=== PATIENT | female | born 1975 | race African-American/Black ===

== ENCOUNTER 2020-03-08 16:06 | Outpatient (CLI) | payer OTHER, SELFPAY ==
[2020-03-08 16:41] LABS: D Dimer 0.33 ug/mL (<0.48)
== END 2020-03-08 16:07 | disposition home or self-care (01) ==
PROVIDERS: PCP Family Medicine; Visit Provider Internal Medicine Cardiovascular Disease
DX: R07.9 Chest pain, unspecified (principal)
CPT/HCPCS: 36415; 85380

== ENCOUNTER 2020-08-10 11:04 | Outpatient (CLI) | payer OTHER, SELFPAY ==
[2020-08-10 11:39] LABS: Hemoglobin A1C 7.8 % (<5.7)
== END 2020-08-10 11:05 | disposition home or self-care (01) ==
LOC: ANHLAB 11:07
PROVIDERS: PCP Family Medicine; Visit Provider Family Medicine
DX: E11.9 Type 2 diabetes mellitus without complications (principal)
CPT/HCPCS: 36415; 83036

== ENCOUNTER 2020-09-05 14:30 | Outpatient (RCR) | payer OTHER, SELFPAY ==
--- NOTE | 2020-08-11 13:45 | OTOPEVAL ---
OCCUPATIONAL THERAPY INITIAL EVALUATION: 08/11/2020 Thank you for referring Amada Jay to [facility].? The patient is scheduled to be seen for therapy? 2 x/week for 4 weeks. Please review, sign, date and return this plan of care [email or web address]. I agree with and certify that the following plan of care is medically necessary. 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 Subjective Information Pt reports having OT for six Query Text:As Reported By Patient/ months after diagnosis of Family lateral epicondylitis for conservative management. Pt reports had a arm of R UE surgery for the removal of nerves in December 2018. Pt reports going to therapy post surgery for approximately 3 months. Pt reports having continued difficulties with picking up objects, grabbing objects, opening bottles and jars, squeezing a broom due to increased pain in bilateral UE elbows. 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
--- NOTE | 2020-08-31 15:37 | PCOTNOTE ---
Appointment cancelled for tomorrow, 09/01/20, due to patient's COVID test still pending.
--- NOTE | 2020-09-05 15:40 | PCOTNOTE ---
Patient no showed and no called for OT appointment, pt called twice with message left in regards to appointment today and when next appointment is scheduled.
--- NOTE | 2020-09-07 10:54 | PCOTNOTE ---
Called patient in regards to appointment today on 09/07/2020. Pt reports unable to make this appointment today but did have a negative COVID-19 test result and will call later today to schedule appointments for continued Outpatient OT.
--- NOTE | 2020-09-21 09:14 | PCOTNOTE ---
Amada has been unable to attend Occupational Therapy for Re-Evaluation due to being sick and previously was pending results of COVID-19 test which came back negative. Amada's last appointment was on 08/24 and re-evaluation was on 09/08 which has not been completed. Pt reported was going to schedule new appointments on 09/07, prior to Plan of Care expiration, but did not call to reschedule appointments. Called and left message with patient on this date that when medically appropriate, will need new orders from MD to continue Occupational Therapy at this time.
--- NOTE | 2020-09-25 07:34 | OTOPEVAL ---
OCCUPATIONAL THERAPY DISCHARGE SUMMARY: 09/25/2020 Amada has been unable to attend Occupational Therapy for Re-Evaluation due to being sick and previously was pending results of COVID-19 test which came back negative. Amada's last appointment was on 08/24 and re-evaluation was on 09/08 which has not been completed. Pt reported was going to schedule new appointments on 09/07, prior to Plan of Care expiration, but did not call to reschedule appointments. Called and left message with patient that when medically appropriate, will need new orders from MD to continue Occupational Therapy at this time. This note will serve as Discharge Summary from occupational therapy at this time. I agree with and certify that the following plan of care is medically necessary. Referring Physician Date Attending Provider: PHYSICIAN NOT ON STAFF
== END 2020-09-25 09:42 | disposition home or self-care (01) ==
LOC: ANHOT 14:30
PROVIDERS: PCP Family Medicine
DX: M77.11 Lateral epicondylitis, right elbow (principal); M77.01 Medial epicondylitis, right elbow; M77.12 Lateral epicondylitis, left elbow; M77.02 Medial epicondylitis, left elbow
CPT/HCPCS: 97018; 97035; 97110; 97140; 97165; L3905

== ENCOUNTER 2021-05-04 08:43 | Outpatient (CLI) | payer MEDICAID, SELFPAY ==
[2021-05-04 09:24] LABS: Alanine Aminotransferase 14 U/L (4-35); Albumin Level 4.1 g/dL (3.5-5.1); Alkaline Phosphatase 63 U/L (38-126); Anion Gap 11 mmol/L (8-16); Aspartate Amino Transferase 25 U/L (14-36); Bilirubin,Total 0.6 mg/dL (0.2-1.3); Blood Urea Nitrogen 8 mg/dL (7-17); Calcium 9.3 mg/dL (8.4-10.2); Carbon Dioxide 24 mmol/L (22-30); Chloride 103 mmol/L (98-107); Cholesterol 181 mg/dL (0-200); Estimated Glomerular Filt Rate > 60; Glucose 234 mg/dL (65-105); HDL Direct 50 mg/dL; Potassium 3.7 mmol/L (3.4-5.0); Sodium 138 mmol/L (137-145); Triglycerides 187 mg/dL (<150)
[2021-05-04 09:35] LABS: LDL Cholesterol Direct 89 mg/dL
[2021-05-04 09:44] LABS: Creatinine Urine 132.1 mg/dL
[2021-05-04 09:49] LABS: MALB Creatinine Ratio 9.1 mg/g (0-30)
[2021-05-04 10:18] LABS: Vitamin D 25 Hydroxy 38.5 ng/mL
== END 2021-05-04 08:44 | disposition home or self-care (01) ==
LOC: ANHLAB 08:47
PROVIDERS: PCP Family Medicine
DX: E11.65 Type 2 diabetes mellitus with hyperglycemia (principal); Z79.4 Long term (current) use of insulin
CPT/HCPCS: 36415; 80053; 80061; 82043; 82306; 84443

== ENCOUNTER 2022-01-09 11:59 | Outpatient (CLI) | payer OTHER, SELFPAY ==
[2022-01-09 13:36] LABS: Creatinine Urine 187.2 mg/dL
[2022-01-09 15:04] LABS: MALB Creatinine Ratio 7.3 mg/g (0-30); Microalbumin Urine Random 13.6 mg/L (0-16.7)
== END 2022-01-09 12:00 | disposition home or self-care (01) ==
PROVIDERS: PCP Family Medicine
DX: E11.65 Type 2 diabetes mellitus with hyperglycemia (principal)
CPT/HCPCS: 36415; 82043; 82607

== ENCOUNTER 2022-07-04 08:50 | Outpatient (CLI) | payer OTHER, SELFPAY ==
--- NOTE | 2022-07-04 14:04 | WPDPFTINT ---
PFT Procedure Performed PFT Procedure Performed Spirometry with Pre/Post Bronchodilator Plethysmography (Lung Vol) Diffusing Cap (DLCO) Flow Vol Loop PFT Interpretation Lung volumes were measured with the body plethysmography method. The diminished expiratory reserve volume is related to obesity. The remaining lung volumes are unremarkable. Spirometry showed diminished expiratory flow rates and a normal FEV1 to FVC ratio of 85%. No post bronchodilator study was carried out. Lung diffusion capacity is within the normal range at 78% predicted. The restrictive pattern on spirometry in the face of a normal total lung capacity is consistent with a nonspecific pattern. Flow-volume loop is consistent with suboptimal effort. Impression: Nonspecific pattern. Suboptimal effort. Lung diffusion capacity within the normal range.
== END 2022-07-04 08:51 | disposition home or self-care (01) ==
LOC: ANHPFT 08:51
PROVIDERS: PCP Family Medicine; Visit Provider Physician Assistant
DX: R05.3 Chronic cough (principal)
CPT/HCPCS: 94375; 94726; 94729

== ENCOUNTER 2022-11-25 08:55 | Outpatient (CLI) | payer OTHER, SELFPAY ==
--- NOTE | 2022-11-25 | ECG_ITS ---
Measurements Intervals [place] Rate: 76 P: 28 SC: 163 QRS: -20 QRSD: 87 T: 16 QT: 380 QTc: 429 Interpretive Statements SINUS RHYTHM DELAYED PRECORDIAL R/S TRANSITION BORDERLINE ECG NO PREVIOUS ECG AVAILABLE FOR COMPARISON Electronically Signed On 11-25-2022 9:55:12 DIRECTOR NEW PRODUCT by Lance Cuello D.O.
--- NOTE | ~2022-11-25 | XR_ITS ---
EXAMINATION: XR chest 2V DATE: 11/25/2022 10:11 INDICATION: Hypertension TECHNIQUE: PA and lateral views of the chest are obtained. COMPARISON: 04/17/2022 FINDINGS: The lungs are free of acute opacities. No pleural effusion or pneumothorax. The cardiomedia stinal silhouette is normal. There is mild thoracic spondylosis. Osteoarthritis is noted in the shoul ders. IMPRESSION: 1. No acute cardiopulmonary abnormality. Reviewed, dictated and finalized at location B. 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
--- NOTE | 2022-11-25 12:32 | WPDPFTINT ---
PFT Procedure Performed PFT Procedure Performed Plethysmography (Lung Vol) Diffusing Cap (DLCO) Flow Vol Loop Spirometry w/o Bronchodil PFT Interpretation This is a pulmonary function test with spirometry, plethysmography and diffusing capacity. The test was performed and results interpreted in accordance with the 2019 and 2005 ATS/ERS Task Force guidelines respectively using the Global Lung Function Initiative-2012 reference equations. Patient demonstrated good effort and cooperation. Reproducibility criteria were met. The quality of the spirometry maneuver was Grade A. Findings: Spirometry: the contour the expiratory flow tracing is normal. The contour the inspiratory flow tracing is truncated and cannot be evaluated. The FVC is 2.52 L, 81% predicted. The FEV1 is 2.12 L, 84% predicted. The FEV1: FVC ratio was 84%. Plethysmography: The total lung capacity is 3.91 L, 85% predicted. The functional residual capacity is 1.68 L, 62% predicted. The residual volume is 1.39 L, 84% predicted. Diffusion capacity: The diffusing capacity unadjusted for hemoglobin and carboxyhemoglobin is 19.0, 81% predicted. The diffusing capacity adjusted for alveolar volume is 5.54, 120% predicted. In comparison to previous pulmonary function test on 07/04/2022 in which the patient was unable to provide reproducible results on the spirometry secondary due to patient's persistent cough. The FVC is unchanged from 2.31 to 2.52. The FEV1 is unchanged from 1.96-2.12. The total lung capacity is decreased from 5.18 L to 3.91 L. The functional residual capacity is decreased from 2.62 L to 1.68 L. The residual volume is decreased from 2.60 L to 1.39 L. The DLCO on adjusted for hemoglobin and carboxyhemoglobin is unchanged at 18.3 to a value of 19. The diffusing capacity adjusted for alveolar volume is unchanged from 5.46 to a value of 5.54. Impression: The spirometry is normal without evidence of an obstructive abnormality. The total lung capacity and residual volume are normal with a decreased functional residual capacity. This is an abnormal but nonspecific lung volume pattern. The diffusing capacity is normal. When compared to previous pulmonary function testing on 07/04/2022 in which the patient was unable to provide reproducible results on the spirometry secondary due to patient's persistent cough there has been a greater than anticipated time dependent decrease in the total lung capacity, functional residual capacity and residual volume with no change in the FVC, FEV1 or DLCO. Clinical correlation is recommended.
== END 2022-11-25 08:56 | disposition home or self-care (01) ==
PROVIDERS: PCP Family Medicine; Visit Provider Physician Assistant
DX: Z01.89 Encounter for other specified special examinations (principal)
CPT/HCPCS: 71046; 93005; 94375; 94726; 94729

== ENCOUNTER 2022-12-26 08:36 | Outpatient (CLI) | payer OTHER, SELFPAY ==
--- NOTE | 2022-12-26 08:48 | EST_ITS ---
Patient Info Name: Amaad Jay Age: 47 years : 1975 Gender: Female Ht: 65 in Wt: 240 lbs BSA: 2.29 m2 Exam Date: 12/26/2022 9:14 AM Exam Location: [facility] Pulmonary Patient Status: Outpatient Admit Date: 12/26/2022 Staff Ordering Physician: Lance Cuello DO Podiatrist Orthopedic: Silvestre Manzo RDCS, RT Attending Provider: Referring Physician: Kumar Branham MD; Exam Type: CA stress echo Study Info Indications Z01.818 - Encounter for other preprocedural examination Treadmill exercise stress echocardiogram is performed. Summary 1. 1. Negative Rashard exercise stress test for ischemic ST changes by ECG criteria. 2. 2. Reduced functional capacity, achieving 5.9 METs of workload. 3. 3. Baseline hypertension with hypertensive response to exercise. 4. 4. Appropriate HR response to exercise. 5. 5. Appropriate HR recovery at 1 minute post exercise. 6. 6. Negative stress echocardiogram for ischemia by wall motion analysis. 7. 7. Patient informed of the above results. Stress Echo Findings Left Ventricle Appropriate increase in LV endocardial thickening with systole. Appropriate augmentation of contractility with systole. No wall motion abnormality. Left Ventricle Normal LV systolic function, no wall motion abnormality. Protocol: Rashard Stress ECG Details Stage: REST Duration (min): 1 min : 30 sec Speed (mph): 0.0 Grade (%): 0 HR (bpm): 89 SBP (mmHg): 146 DBP (mmHg): 61 METS: --- Stage: REST Duration (min): 31 min : 25 sec Speed (mph): 0.0 Grade (%): 0 HR (bpm): 80 SBP (mmHg): 146 DBP (mmHg): 61 METS: --- Stage: STAGE 1 Duration (min): 1 min : 0 sec Speed (mph): 1.7 Grade (%): 10 HR (bpm): 119 SBP (mmHg): 146 DBP (mmHg): 61 METS: --- Stage: STAGE 1 Duration (min): 2 min : 0 sec Speed (mph): 1.7 Grade (%): 10 HR (bpm): 136 SBP (mmHg): 146 DBP (mmHg): 61 METS: --- Stage: STAGE 1 Duration (min): 3 min : 0 sec Speed (mph): 1.7 Grade (%): 10 HR (bpm): 151 SBP (mmHg): 210 DBP (mmHg): 89 METS: --- Stage: STAGE 2 Duration (min): 0 min : 52 sec Speed (mph): 0.0 Grade (%): 0 HR (bpm): 159 SBP (mmHg): 218 DBP (mmHg): 88 METS: --- Stage: RECOVERY Duration (min): 0 min : 7 sec Speed (mph): 0.0 Grade (%): 0 HR (bpm): 158 SBP (mmHg): 218 DBP (mmHg): 88 METS: --- Stage: RECOVERY Duration (min): 1 min : 7 sec Speed (mph): 0.0 Grade (%): 0 HR (bpm): 120 SBP (mmHg): 218 DBP (mmHg): 88 METS: --- Stage: RECOVERY Duration (min): 1 min : 54 sec Speed (mph): 0.0 Grade (%): 0 HR (bpm): 101 SBP (mmHg): 253 DBP (mmHg): 69 METS: --- Rest HR: 80 bpm Peak HR: 159 bpm Rest Sys BP: 146 mmHg Peak Sys BP: 253 mmHg Max Pred HR: 173 bpm % Max Pred HR: 92 % Target HR: 147 bpm Max RPP: 40,227 bpm*mmHg Garcia Score: -1 BP Response: Patient exhibited a hypertensive response with stress Termination Reason: Reached target hea
[2022-12-26 11:23] LABS: Alanine Aminotransferase 22 U/L (6-35); Albumin Level 4.6 g/dL (3.5-5.1); Alkaline Phosphatase 66 U/L (38-126); Anion Gap 13 mmol/L (8-16); Aspartate Amino Transferase 22 U/L (14-36); Bilirubin,Total 0.7 mg/dL (0.2-1.3); Blood Urea Nitrogen 8 mg/dL (7-17); Calcium 9.3 mg/dL (8.4-10.2); Carbon Dioxide 22 mmol/L (22-30); Chloride 102 mmol/L (98-107); Cholesterol 253 mg/dL (0-200); Estimated Glomerular Filt Rate > 60; Glucose 153 mg/dL (65-110); HDL Direct 51 mg/dL; Potassium 3.9 mmol/L (3.4-5.0); Sodium 137 mmol/L (137-145); Triglycerides 182 mg/dL (<150)
[2022-12-26 11:28] LABS: Vitamin D 25 Hydroxy 28.2 ng/mL
[2022-12-26 11:34] LABS: LDL Cholesterol Direct 136 mg/dL
[2022-12-26 11:50] LABS: Creatinine Urine 78.9 mg/dL
[2022-12-26 11:54] LABS: MALB Creatinine Ratio 13.4 mg/g (0-30); Microalbumin Urine Random 10.6 mg/L (0-16.7)
== END 2022-12-26 08:37 | disposition home or self-care (01) ==
PROVIDERS: PCP Family Medicine; Referring Provider Internal Medicine; Visit Provider Internal Medicine Cardiovascular Disease
DX: R06.09 Other forms of dyspnea (principal); E11.9 Type 2 diabetes mellitus without complications; I10 Essential (primary) hypertension; E66.9 Obesity, unspecified; M19.90 Unspecified osteoarthritis, unspecified site
CPT/HCPCS: 36415; 80053; 80061; 82043; 82306; 82607; 84443; 93351

== ENCOUNTER 2023-02-06 08:41 | Outpatient (CLI) | payer OTHER, SELFPAY ==
--- NOTE | 2023-03-06 11:45 | WPDSLEEPSTUD ---
Sleep Study Date of Study: 02/06/23 Ordering Provider: Laura Roland, JOSE Interpreting Physician: Cailin Schroeder MD Sleep Study Type: Polysomnogram Height: 1.68 m Weight: 108.8 kg Body Mass Index: 38.7 Neck Circumference (inches): 16 Coffey: 21 Reason for Sleep Study Hypersomnolence Sleep History Amada Jay is a 48-year-old female who occasionally awakens from sleep feeling short of breath. She has allergic rhinitis, chronic sinusitis, and she frequently awakens at night with heartburn, belching or coughing. She always snores, frequently loudly enough that others complain about it. She frequently has difficulty sleeping with a cold. She frequently wakes up gasping for breath during the night. She frequently has breathing problems at night observed by others. She frequently sweats excessively at night. She rarely notices her heart pounding or beating irregularly at night. She frequently falls asleep during the day, frequently falls asleep involuntarily but rarely while driving. She rarely has loss of muscle tone with strong emotion. 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 She occasionally feels paralyzed on waking or falling asleep. She rarely has vivid dreamlike scenes on waking or falling asleep. She does not feel afraid to go to sleep. She rarely has nightmares. She frequently remembers her dreams. She frequently has racing thoughts, feelings of sadness, depression and anxiety. She occasionally has muscular tension. She occasionally notices parts of her body jerking. She frequently kicks at night. She always has crawling and aching feelings in her legs as well as leg pain at night. She does not have morning jaw pain. She rarely grinds her teeth during sleep. She occasionally is bothered by pain during the day. She frequently is awakened by pain at night. She rarely wakes up feeling stiff in the morning with sore achy muscles or pain in the neck and spine. She has headaches, memory problems. Normal bedtime is 11:00 p.m. taking 2 hours to fall asleep. 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 It is not clear what wakes her. She wakes in the morning between 5:00 a.m. and 6:00 a.m.. She estimates getting between 4 and 5 hours of sleep normally. On weekends, bedtime may be between 10:00 p.m. and 11:00 p.m., wake-up time is 6:00 a.m.. She takes naps in the afternoon or evening. A short nap lasting 10 or 15 minutes sometimes is refreshing. She is usually drowsy on waking for 1 hour or more. She feels better in the morning and afternoon compared to the evening. Habits: No tobacco. No caffeine, alcohol or recreational substances. [facility] Past Medical History Medical History (Updated 03/06/23 @ 13:41 by Cailin Schroeder MD) Arthritis Diabetes Dyslipidemia Hypertension Obesity Type 2 diabetes mellitus with diabetic neuropathy Surgical History Surgical History H/O elbow surgery Status post right foot surgery Family History Family History Father Age: 94 Lung cancer Mother Hypertension Cerebrovascular accident Social History Social History Smoking status: Never smoker Medications Home Medications Medication Instructions Recorded Confirmed Type amlodipine 10 mg tablet 10 mg PO DAILY 12/12/22 12/12/22 History cetirizine 10 mg tablet 10 mg PO DAILY PRN 12/12/22 12/12/22 History duloxetine 20 mg capsule,delayed 20 mg PO BID 12/12/22 12/12/22 History release ergocalciferol (vitamin D2) 1,250 1,250 mcg PO MONTHLY 12/12/22 12/12/22 History mcg (50,000 unit) capsule famotidine 40 mg tablet 40 mg PO DAILY 12/12/22 12/12/22 History hydrochlorothiazide 25 mg tablet 25 mg PO DAILY 12/12/22 12/12/22 History char
[2023-03-06 13:44] VITALS: BMI 38.7
== END 2023-02-07 08:02 | disposition home or self-care (01) ==
LOC: ANHCSM 08:45
PROVIDERS: PCP Family Medicine; Visit Provider Physician Assistant
DX: G47.61 Periodic limb movement disorder (principal); I10 Essential (primary) hypertension; E78.5 Hyperlipidemia, unspecified; E11.9 Type 2 diabetes mellitus without complications
CPT/HCPCS: 95810

== ENCOUNTER 2023-06-12 09:11 | Outpatient (CLI) | payer OTHER, SELFPAY ==
[2023-06-12 10:15] LABS: Alanine Aminotransferase 17 U/L (6-35); Albumin Level 4.3 g/dL (3.5-5.1); Alkaline Phosphatase 77 U/L (38-126); Anion Gap 10 mmol/L (8-16); Aspartate Amino Transferase 23 U/L (14-36); Bilirubin,Total 0.9 mg/dL (0.2-1.3); Blood Urea Nitrogen 9 mg/dL (7-17); Calcium 9.1 mg/dL (8.4-10.2); Carbon Dioxide 28 mmol/L (22-30); Chloride 100 mmol/L (98-107); Cholesterol 199 mg/dL (0-200); Estimated Glomerular Filt Rate > 60; Glucose 165 mg/dL (65-110); HDL Direct 45 mg/dL; Potassium 3.4 mmol/L (3.4-5.0); Sodium 138 mmol/L (137-145); Triglycerides 94 mg/dL (<150)
[2023-06-12 10:25] LABS: LDL Cholesterol Direct 104 mg/dL
== END 2023-06-12 09:12 | disposition home or self-care (01) ==
LOC: ANHLAB 09:12
PROVIDERS: PCP Physician Assistant; Visit Provider Internal Medicine Cardiovascular Disease
DX: E78.5 Hyperlipidemia, unspecified (principal)
CPT/HCPCS: 36415; 80053; 80061

== ENCOUNTER 2023-07-14 15:47 | Outpatient (CLI) | payer OTHER, SELFPAY ==
--- NOTE | ~2023-07-14 | US_ITS ---
EXAMINATION: US soft tissue LE LT DATE: 07/14/2023 16:22 INDICATION: Synovial cyst of left popliteal space. TECHNIQUE: Multiple grayscale and Doppler ultrasound images of the left lower limb were obtained. COMPARISON: None FINDINGS: There is no left-sided Vigil's cyst or abnormal mass. IMPRESSION: 1. No cyst or abnormal mass in the patient's area of concern in left popliteal space. Reviewed, dictated and finalized at location E.
== END 2023-07-14 15:48 | disposition home or self-care (01) ==
PROVIDERS: PCP Physician Assistant; Visit Provider Physician Assistant
DX: M71.22 Synovial cyst of popliteal space [Baker], left knee (principal)
CPT/HCPCS: 76882

== ENCOUNTER 2025-02-05 07:46 | Outpatient (CLI) | payer OTHER, SELFPAY ==
--- OUTSIDE RECORDS SUMMARY | 2025-02-05 07:49 | XMS_ITS | Clinical Summary ---
Author Organization [facility] Healthcare Address [address] [place] [address] Care Team Providers Care Consumer Safety Officer Name Role Phone Laura Roland Primary Care Provider [phone] Allergies Active Allergy Reactions Criticality Noted Date Comments Ibuprofen Other (See comments) Low 08/06/2023 Had gasrtic bypass surgery 05/02/2023 Medications fluticasone (FLONASE) 50 mcg/actuation nasal spray Administer 2 sprays into each nostril daily as needed for rhinitis 8 Active SURE COMFORT PEN NEEDLE 32 gauge x 32 needle USE one pen needle ONCE DAILY 9 9 Active ergocalciferol (VITAMIN D) 50,000 unit capsuleIndicati ons:Vitamin D Deficiency Take 1 capsule (50,000 Units total) by mouth once a week Takes on Mondays 9 Active ONETOUCH VERIO strip USE ONE strip two times DAILY 11 9 Active blood-glucose meter misc 1 Device by Not Applicable route 9 Active TRUEPLUS LANCETS 30 gauge misc 3 (three) times a day 5 9 Active amLODIPine (NORVASC) 10 mg tabletIndicatio ns:hypertension Take 1 tablet (10 mg total) by mouth every morning Active cetirizine (ZyrTEC) 10 mg tabletIndicatio ns:Allergic Rhinitis Take 1 tablet (10 mg total) by mouth daily as needed for allergies or rhinitis 3 Active magnesium oxide 400 mg magnesium capsuleIndicati ons:supplement Take 1 capsule by mouth nightly Active cyanocobalamin (Vitamin B-12) 500 mcg tabletIndicatio ns:Prevention of Vitamin B12 Deficiency Take 1 tablet (500 mcg total) by mouth daily 30 tablet 11 3 Active docusate sodium (COLACE) 100 mg capsuleIndicati ons:constipatio n,stool softener Take 1 capsule (100 mg total) by mouth 2 (two) times a day as needed for constipation 15 capsule 3 Active multivitamin tabletIndicatio ns:Vitamin Deficiency Prevention Take 1 tablet by mouth 2 (two) times a day 60 tablet 11 3 Active calcium citrate-vitamin D3 250 mg-5 mcg (200 unit) tablet Take 2 tablets by mouth 3 (three) times a day 90 tablet 11 3 Active montelukast (SINGULAIR) 10 mg tablet Take 1 tablet (10 mg total) by mouth nightly as needed 3 Active Daily-Leonel, with folic acid, 400 mcg tablet Take 1 tablet by mouth 2 (two) times a day 3 Active pravastatin (PRAVACHOL) 20 mg tablet Take 1 tablet (20 mg total) by mouth daily 4 Active Trulicity 4.5 mg/0.5 mL pen injector Inject 0.5 mL (4.5 mg total) under the skin once a week 4 Active loratadine (CLARITIN) 10 mg tablet Take 1 tablet (10 mg total) by mouth daily [address] (CYMBALTA) 20 mg capsule Take 1 capsule (20 mg total) by mouth every morning 4 Active Pain Reliever, acetaminophen, 500 mg tablet Take 1 tablet (500 mg total) by mouth every 6 (six) hours 4 Active amitriptyline (ELAVIL) 25 mg tablet Take 1 tablet (25 mg total) by mouth nightly Start after completing 7 days of 10 mg tablet 30 tablet 11 4 08/11/20 25 Active rizatriptan (MAXALT) 10 mg tabletIndicatio ns:Migraine Take 1 tablet (10 mg total) by mouth as needed for migraine May repeat in 2 hours if unresolved. Do not exceed 30 mg in 24 hours. 9 tablet 11 4 Active ondansetron (ZOFRAN) 4 mg tablet Take 1 tablet (4 mg total) by mouth every 6 (six) hours as needed for nausea or vomiting 20 tablet 4 Active metoclopramide (REGLAN) 10 mg tablet Take 1 tablet (10 mg total) by mouth every 6 (six) hours As needed for nausea and vomiting 30 tablet 4 Active lidocaine (LIDODERM) 5 %Indications:Ac hilles tendinitis of left lower extremity place ONE PATCH TO SKIN EXTERNALLY daily (12 hours AND 12 hours off) 30 patch 2 5 Active Active Problems Problem Noted Date Diagnosed Date Gastric lesion 06/11/2023 Morbid (severe) obesity due to excess calories 0 05/02/2023 Gastric mass 03/17/2023 Gastric ulcer 03/17/2023 Pre-op exam 03/04/2023 Physical exam, pre-employment 10/01/2022 Assessment & Plan (10/02/2022 4:07 AM PREP PERSON): No abnormal findings on physical exam to preclude employment. Morbid obesity with BMI of 40.0-44.9, adult 02/16 Obstructive sleep apnea 03/08/2020 Hyperlipidemia associated with type 2 diabetes m ellitus 03/08/2020 Chest pain 03/08/2020 Dyspnea on exertion 03/08/2020 HLD (hyperlipidemia) 04/01/2019 Epicondylitis, lateral, right 11/24/2018 Overview (11/24/2018): Added automatically from request for surgery [id number] Radial tunnel syndrome 11/24/2018 Overview (11/24/2018): Added automatically from request for surgery [id number] Achilles tendinitis of right lower extremity Hypertension associated with diabetes 04/16/2018 Type 2 diabetes mellitus wit h hyperglycemia, with long-term current use of insulin ([facility]) 04/16/2018 Lateral epicondylitis of right elbow 03/26/2018 Bone spur of foot 03/20/2018 Overview (05/04/2018): Overview: Calcaneal spurs with chronic bursitis Encounters Date Type Department Care Team Description 01/24/2025 2:45 PM CDT - 01/24/2025 11:59 PM CDT Hospital Encounter [facility] MRI [address] [place] [id number] Acute lateral meniscus tear of left knee, initial encounter Discharge Disposition: Discharge to home or self care 12/16/2024 3:15 PM PREP PERSON Office Visit [facility] Orthopedics and Sports Medicine [facility] [address] [place] [phone] Elliot Blakely DO Acute lateral meniscus tear of left knee, initial encounter (Primary Dx) 12/03/2024 6:07 AM PREP PERSON - 12/03/2024 11:30 AM PREP PERSON Emergency [address] [address] Rosendo Aguayo MD Acute pain of left knee (Primary Dx) Discharge Disposition: Discharge to home or self care 11/24/2024 Telephone [facility] Gastroenterology [address] [place] [address] Medical Office [address] [place] [address] Sandi Frederick RN Test Results 11/23/2024 5:11 PM PREP PERSON - 11/23/2024 11:59 PM PREP PERSON Hospital Encounter [address] [address] Gastric lesion Discharge Disposition: Discharge to home or self care 11/23/2024 5:11 PM PREP PERSON - 11/23/2024 11:59 PM PREP PERSON Hospital Encounter [address] [address] Cyst of right ovary Discharge Disposition: Discharge to home or self care 11/15/2024 Telephone [facility] [address] [place] [address] Medical Office [address] [place] [address] Maritza Schumacher RN from Last 3 Months Immunizations Immunization Administration Dates Next Due Pneumococcal Polysaccharide PPV23 08/05/2006 Tdap 08/30/2022 Surgical History Surgery Date Site/Laterality Comments ANKLE SURGERY 11/17/2017 - 11/16/2018 Right achilles tendon & bone spurs, [facility] SECTION 11/17/1990 - 11/16/1991 ENDOMETRIAL ABLATION W/ NOVASURE 11/17/2014 - 11/16/2015 Dr Haq SECTION 11/17/1993 - 11/16/1994 COLONOSCOPY OTHER SURGICAL HISTORY ELBOW SURGERY 11/17/2018 - 11/16/2019 Right nerve, [facility] ESOPHAGOSCOPY / EGD 11/17/2022 - 11/16/2023 GASTRIC BYPASS 04/17/2023 - 05/16/2023 Medical History Medical History Date Comments Arthritis Hypercholesteremia Hypertension Vigil's cyst of knee, left Depression 3 years ago Type 2 diabetes mellitus (HCC) 8 years GERD (gastroesophageal reflux disease) Joint pain Obesity Osteoporosis Colon polyp Sleep apnea Neuropathy Fibroids Ovarian cyst right Family History Medical History Relation Name Comments Lung disease Brother Arthritis Father Jewel Ivory Cancer Father Jewel Ivory Lung disease Father Chauncey Ivory Arthritis Mother Briana Barrera Hypertension Mother Briana Barrera Kidney disease Mother Briana Albarranor d Miscarriages / Stillbirths Mother Briana Dillard liams Barrera Stroke Mother Briana Barrera Anesthesia problems Neg Hx Breast cancer Neg Hx Ovarian cancer Neg Hx Relation Name Status Comments Brother Father Chauncey Rocha (Age 74) Mother Briana Barrera (Age 58) Social History Tobacco Use Types Packs/Day Years Used Date Smoking Tobacco: Never Passive Smoke Exposure: Past Smokeless Tobacco: Never Tobacco Cessation:Counseling Given: Not Answered Alcohol Use Standard Drinks/Week Comments No 0 (1 standard drink = 0.6 oz pur e alcohol) AUDIT-C Answer Date Recorded Q1: How often do you have a drink containing alcohol? Never 08/11/2024 Q2: How many drinks containi ng alcohol do you have on a typical day when you are drinking? Patient does not drink Q3: How often do you have si x or more drinks on one occasion? Never 08/11/2024 Personal Safety Answer Date Recorded Have you ever been in or are you currently in a harmful physical or emotional relationship or is someone making you feel afraid or unsafe? Denies 12/03/2024 Comments No Sex and Gender Information Value Date Recorded Sex Assigned at Not on file Legal Sex Female 9:50 AM CDT Gender Identity Not on file Sexual Orientation Not on file Occupation Industry Job Start Date Job End Date working Not on file Not on file Not on file Obstetrics History Para Term AB IAB SAB Ectopic Multiple Livin g Live Births 3 3 3 Date Outcome GA Total Labor Labor/2nd/3rd Weight Sex Type Anes PTL Nhung A1 A5 Name Clin Term Term Term Comments 09/02 Last Filed Vital Signs Vital Sign Reading Time Taken Comments Blood Pressure 140/70 12/03/2024 11:09 AM PREP PERSON Pulse 69 12/03/2024 11:09 AM PREP PERSON Temperature 36.1 C (97 F) 12/03/2024 5:43 AM PREP PERSON Respiratory Rate 17 12/03/2024 11:0 9 AM PREP PERSON Oxygen Saturation 100% 12/03/2024 11: 09 AM PREP PERSON Inhaled Oxygen Concentration - - Weight 80.7 kg (177 lb 14.6 oz) 01/24/2025 3:07 PM CDT Height 157.5 cm (5' 2 ) 01/24/2025 3:07 PM CDT Body Mass Index 32.54 01/24/2025 3:07 PM CDT Plan of Treatment Health Maintenance Due Date Last Done Comments Albumin Creatinine Ratio, Urine 1975 Colon Cancer Screening-Colonoscopy 1975 Depression Screening 1975 Hepatitis C Screening 1975 Dilated Eye Exam 1975 Foot Exam 1975 Hepatitis B Screening 1993 Cervical Cancer Screening 07/13/2022 07/13/2021, Pneumococcal vaccine <65 (2 of 2 - PCV) 01/28/2023 01/28/2022, 11/01/2015, 08/05/2006 Covid-19 Vaccine ( - 2023-2 5 season) 2024 05/12/2021, 04/11/2021, 03/22/2021 Influenza Vaccine (#1) 2024 , 08/17/2019, 08/29/2014 Hemoglobin A1C 12/17/2024 06/16/2024, 05/, 09/25/2022, Additional history exists Regular Well Visit/Exam 18-64 01/07/2025 01/07/2024, 02/18/2023 Zoster Vaccine (1 of 2) 2025 Lipid Panel 06/16/2025 06/16/2024, 04/17, 09/25/2022, Additional history exists Breast Cancer Screening-Mammogram 08/25/2025 08/25/2024, 08/20/2023, 11/06/2021, Additional history exists eGFR 12/03/2025 12/03/2024, 07/19, 06/16/2024, Additional history exists DTaP/Tdap/Td Vaccine (4 - Td or Tdap) 08/30/2032 08/30/2022, 11/01/2015, 08/29/2014 Procedures Procedure Name Priority Date/Time Associated Diagnosis Comments MRI KNEE LEFT WO CONTRAST Schedule Routine, Read Routine (OP Routine) 01/24/2025 3:41 PM CDT Acute lateral meniscus tear of left knee, initial encounter XR KNEE LEFT 1 OR 2 VIEWS ED 12/03/2024 11:07 AM PREP PERSON US VEIN DUPLEX LOWER EXTREMITY LEFT LIMITED ED 12/03/2024 9:25 AM PREP PERSON DIFFERENTIAL AUTO STAT 12/03/2024 7:1 6 AM PREP PERSON D-DIMER, QUANTITATIVE STAT 12/03/2024 7:16 AM PREP PERSON CBC WITH AUTO DIFFERENTIAL STAT 12/03/2024 7:16 AM PREP PERSON EGFR STAT 12/03/2024 6:43 AM PREP PERSON BASIC METABOLIC PANEL STAT 12/03/2024 6:43 AM PREP PERSON MRI ABDOMEN PANCREAS W WO CONTRAST Schedule Routine, Read Routine (OP Routine) 11/23/2024 6:39 PM PREP PERSON Gastric lesion US PELVIS COMPLETE Schedule Routine, Read Routine (OP Routine) 11/23/2024 5:52 PM PREP PERSON Cyst of right ovary SCREENING MAMMOGRAM BILATERAL W TONY Schedule Routine, Read Routine (OP Routine) 08/25/2024 3:21 PM CDT Screening mammogram, encounter for HEMOGLOBIN A1C Routine 06/16/2024 10:58 AM CDT Bariatric surgery status Other specified intestinal malabsorption BMI 31.0-31.9,adult LIPID PANEL Routine 06/16/2024 10:58 AM CDT Bariatric surgery status Other specified intestinal malabsorption BMI 31.0-31.9,adult THINPREP PAP WITH HPV Routine 07/13/2021 11:05 AM CDT from Last 3 Months or Most Recently Relevant to Health Maintenance Results * MRI Knee Left WO Contrast (01/24/2025 3:41 PM CDT) Anatomical Region Laterality Modality Lower Extremities Left Magnetic Reson ance 01/24/2025 3:50 PM CDT Narrative 01/24/2025 3:53 PM CDT EXAM DESCRIPTION: MRI KNEE LEFT WO CONTRAST REASON FOR STUDY: Left knee pain for 6 months. TECHNIQUE: Multiplanar, multisequence MRI of the left knee was performed without contrast. COMPARISON: Radiograph dated December 03, 2024 FINDINGS: Joint and Bursae: There is no joint effusion. No Vigil's cyst. No intra-articular plica. Bones: No fracture. Cartilage: Patellofemoral: Mild chondromalacia Medial compartment: Mild chondromalacia Lateral Compartment: Mild chondromalacia Ligaments: The ACL, PCL, MCL and lateral collateral ligament complex are intact. Extensor Mechanism: The quadriceps and patellar tendons are intact. Tendons/Soft tissues: The popliteus tendon is intact. The musculature is intact without evidence of tear. The popliteal neurovascular bundle is normal. Medial Meniscus: Anterior horn and body is intact. There is oblique undersurface tearing of the posterior horn. Lateral Meniscus: The anterior horn, body and posterior horn is intact. IMPRESSION: Medial meniscus posterior horn oblique undersurface tear. Intact appearing cruciate and collateral ligaments as well as lateral meniscus. Mild tricompartmental chondromalacia. THIS IS AN ELECTRONICALLY VERIFIED FINAL REPORT 01/24/2025 3:53 PM - Electronically signed by Vasyl YANCEY T: Report ID: [id number] Reading Location: [id number] Procedure Note Vasyl Ayala MD - 01/24/2025 EXAM DESCRIPTION: MRI KNEE LEFT WO CONTRAST REASON FOR STUDY: Left knee pain for 6 months. TECHNIQUE: Multiplanar, multisequence MRI of the left knee was performed without contrast. COMPARISON: Radiograph dated December 03, 2024 FINDINGS: Joint and Bursae: There is no joint effusion. No Vigil's cyst.No intra-articular plica. Bones: No fracture. Cartilage: Patellofemoral: Mild chondromalacia Medial compartment: Mild chondromalacia Lateral Compartment: Mild chondromalacia Ligaments: The ACL, PCL, MCL and lateral collateral ligament complex are intact. Extensor Mechanism: The quadriceps and patellar tendons are intact. Tendons/Soft tissues: The popliteus tendon is intact. The musculature is intact without evidence of tear. The popliteal neurovascular bundle isnormal. Medial Meniscus: Anterior horn and body is intact. There is oblique undersurface tearing of the posterior horn. Lateral Meniscus: The anterior horn, body and posterior horn is intact. IMPRESSION: Medial meniscus posterior horn oblique undersurface tear. Intact appearing cruciate and collateral ligaments as well as lateral meniscus. Mild tricompartmental chondromalacia. THIS IS AN ELECTRONICALLY VERIFIED FINAL REPORT 01/24/2025 3:53 PM - Electronically signed by Vasyl YANCEY T: Report ID: [id number] Reading Location: [id number] Elliot Blakely DO IMG MRI PROCEDURES Final Resul t * XR Knee Left 1 or 2 Views (12/03/2024 11:07 AM PREP PERSON) Anatomical Region Laterality Modality Lower Extremities, Knee Left Computed Radiography 12/03/2024 11:2 6 AM PREP PERSON Narrative 12/03/2024 11:32 AM PREP PERSON EXAM DESCRIPTION: XR KNEE LEFT 1 OR 2 VIEWS REASON FOR STUDY: Left knee pain and swelling. 1st noticed 1 week ago. TECHNIQUE: AP and lateral views of the left knee COMPARISON: Left tibia and fibula radiographs 07/25/2023 FINDINGS: BONES/JOINTS: No acute fracture or dislocation. Moderate medial and patellofemoral compartment osteoarthritis. Curvilinear calcification posterior to the proximal fibula is unchanged and likely related to prior avulsion injury. Superior patellar enthesophyte measuring 8 mm is unchanged. SOFT TISSUES: Small knee joint effusion. IMPRESSION: No acute osseous abnormality. Small knee joint effusion. Moderate medial and patellofemoral compartment osteoarthritis. THIS IS AN ELECTRONICALLY VERIFIED FINAL REPORT 12/03/2024 11:32 AM - Electronically signed by Ignacio SUBRAMANIAN T: Report ID: [id number] Reading Location: [id number] Procedure Note Ignacio Bone MD - 12/03/2024 EXAM DESCRIPTION: XR KNEE LEFT 1 OR 2 VIEWS REASON FOR STUDY: Left knee pain and swelling. 1st noticed 1 week ago. TECHNIQUE: AP and lateral views of the left knee COMPARISON: Left tibia and fibula radiographs 07/25/2023 FINDINGS: BONES/JOINTS: No acute fracture or dislocation. Moderatemedial and patellofemoral compartment osteoarthritis. Curvilinear calcification posterior to the proximal fibula is unchanged and likely related to prior avulsion injury. Superior patellar enthesophyte measuring 8 mm isunchanged. SOFT TISSUES: Small knee joint effusion. IMPRESSION: No acute osseous abnormality. Small knee joint effusion. Moderate medial and patellofemoral compartment osteoarthritis. THIS IS AN ELECTRONICALLY VERIFIED FINAL REPORT 12/03/2024 11:32 AM - Electronically signed by Ignacio Bone M.D. LB T: Report ID: [id number] Reading Location: [id number] us Rosendo Aguayo MD IMG XR PROCEDURES F inal Result * US VEIN DUPLEX LOWER EXTREMITY LEFT LIMITED, UNILATERAL (12/03/2024 9:25 AM PREP PERSON) Anatomical Region Laterality Modality Vascular Left Ultrasound 12/03/2024 Narrative 12/08/2024 8:27 AM PREP PERSON [employer] Job ID: [id number] [employer] Document ID: [id number] Dictated date/time: [id number] LEFT LOWER EXTREMITY VENOUS DUPLEX REASON FOR EXAM Deep vein thrombosis. FINDINGS ON THE LEFT The left common femoral, femoral, popliteal, posterior tibial, peroneal, great saphenous demonstrate spontaneous phasic flow; they augment and are compressible. INTERPRETATION No evidence of deep or superficial venous thrombosis in the left lower extremity. Job ID/Internal Job ID: [id number] Rosendo Edmund Aguayo MD [facility] US PROCEDURES F inal Result * Differential, auto (12/03/2024 7:16 AM PREP PERSON) Pathologist [facility] Neutrophil abs 1.5 1.5 - 6.5 K/cumm Imm gran abs 0.0 0.0 - 0.1 K/cumm [facility] Lymphocyte abs 2.7 0.8 - 3.3 K/cumm [facility] Monocyte abs 0.4 0.2 - 0.8 K/cumm [facility] Eosinophil abs 0.1 0.0 - 0.5 K/cumm [facility] Basophil abs 0.0 0.0 - 0.1 K/cumm [facility] Neutrophil pct 31.1 % [facility] Comment: Interpretive Data Percent cell count reference ranges are not reported, since discordance with absolute values may lead to misinterpretation of CBC data. Current Interpretive Data was last revised on 2018. Imm gran pct 0.0 % [facility] Comment: Interpretive Data Percent cell count reference ranges are not reported, since discordance with absolute values may lead to misinterpretation of CBC data. Current Interpretive Data was last revised on 2018. Lymphocyte pct 57.2 % [facility] Comment: Interpretive Data Percent cell count reference ranges are not reported, since discordance with absolute values may lead to misinterpretation of CBC data. Current Interpretive Data was last revised on 2018. Monocyte pct 8.0 % [facility] Comment: Interpretive Data Percent cell count reference ranges are not reported, since discordance with absolute values may lead to misinterpretation of CBC data. Current Interpretive Data was last revised on 2018. Eosinophil pct 2.8 % [facility] Comment: Interpretive Data Percent cell count reference ranges are not reported, since discordance with absolute values may lead to misinterpretation of CBC data. Current Interpretive Data was last revised on 2018. Basophil pct 0.9 % [facility] Comment: Interpretive Data Percent cell count reference ranges are not reported, since discordance with absolute values may lead to misinterpretation of CBC data. Current Interpretive Data was last revised on 2018. Blood 12/03/2024 7:16 AM PREP PERSON 12/03/2024 7:20 AM PREP PERSON us Rosendo Aguayo MD LAB BLOOD ORDERABLE S Final Result [place] [id number] [facility] Department [place] [address] * (ABNORMAL) CBC with auto differential (12/03/2024 7:16 AM PREP PERSON) WBC 4.7 3.8 - 9.9 K/cumm Hgb 11.6(L) 11.9 - 15.5 g/dL [facility] Hct 34.7(L) 35.6 - 45.5 % [facility] Plt 329 150 - 400 K/cumm [facility] MPV 8.4(L) 9.1 - 12.3 fL [facility] RBC 3.68(L) 3.90 - 5.20 M/cumm [facility] MCV 94.3 81.3 - 96.4 fL [facility] MCH 31.5 27.1 - 33.3 pg [facility] MCHC 33.4 32.3 - 35.7 g/dL [facility] RDW CV 11.5 11.1 - 14.9 % [facility] RDW SD 39.5 35.7 - 48.1 fL [facility] NRBC abs 0.00 0.00 - 0.01 K/cumm [facility] Blood 12/03/2024 7:16 AM PREP PERSON 12/03/2024 7:20 AM PREP PERSON Rosendo Aguayo MD LAB BLOOD ORDERABLE S Final Result Performing Organization Address [facility] de Phone Number ANDREW [address] [place] [employer] [address] * D-dimer, quantitative (12/03/2024 7:16 AM PREP PERSON) D-Dimer <270 <=499 ng/mL FEU Comment: Interpretive data FDA approved the D-dimer, in conjunction with a low or moderate pretest probability score, to exclude venous thromboembolic events (VTE) (PE and DVT) in outpatients when the D-dimer result is < 500 ng/ml FEU. Evidence supports using an age-adjusted D-dimer cut-off for outpatients older than 50 (age x 10) to improve specificity without sacrificing sensitivity. Example: age 68, VTE cut-off 680 ng/ml FEU. References; Schouten HT et al. Brit Med J. 2013;346:f2492. Araceli TADEO et al. Annals Int Med. 2015;163:701-11. Current interpretive data was last revised on 2019. Blood 12/03/2024 7:16 AM PREP PERSON 12/03/2024 7:20 AM PREP PERSON Rosendo Aguayo MD LAB BLOOD ORDERABLE S Final Result Performing Organization Address [facility] de Phone Number ANDREW [address] [employer] [address] * eGFR (12/03/2024 6:43 AM PREP PERSON) eGFR >90 >=60 mL/min/1. 73 m2 Comment: Interpretive Data Reference Interval Normal >/= 90 mL/min/1.73m2 Mildly decreased* 60 - 89 mL/min/1.73m2 Mildly to moderately decreased 45 - 59 mL/min/1.73m2 Moderately to severely decreased 30 - 44 mL/min/1.73m2 Severely decreased 15 - 29 mL/min/1.73m2 Kidney Failure < 15 mL/min/1.73m2 *Relative to young adult level Estimated glomerular filtration rate is determined by the 2020 CKD-EPI equation recommended by the National Kidney Foundation (A Unifying Approach to GFR Estimation: Recommendations of the NKF-ASK Task Force on Reassessing the Inclusion of Race in Diagnosing Kidney Disease, JASN 2020). The CKD-EPI equation should not be used for patients with unstable renal function and has not been validated in children and those over 70. Current interpretive data was last reviewed 2021. Blood 12/03/2024 6:43 AM PREP PERSON 12/03/2024 6:45 AM PREP PERSON us Rosendo Aguayo MD LAB BLOOD ORDERABLE S Final Result [facility] [address] [facility] Department [place] [address] * (ABNORMAL) Basic metabolic panel (12/03/2024 6:43 AM PREP PERSON) Sodium 136 135 - 145 mmol/L Potassium, pl See Comment 3.3 - 4.9 [facility] Comment:Credited; Hemolyzed Specimen Chloride 103 97 - 110 mmol/L [facility] CO2 27 22 - 32 mmol/L [facility] Anion gap 6 2 - 15 mmol/L [facility] BUN 10 6 - 25 mg/dL [facility] Creatinine 0.42(L) 0.60 - 1.10 mg/dL [facility] Glucose 104 70 - 199 mg/dL [facility] Comment: Interpretive Data Fasting glucose >/= 126 mg/dl is diagnostic for diabetes. Fasting is defined as no caloric intake for at least 8 hours. Fasting glucose between 100 mg/dl to 125 mg/dl is diagnostic of prediabetes. In a patient with classic symptoms of hyperglycemia or hyperglycemic crisis, a random glucose >/= 200 mg/dl is diagnostic for diabetes. In the absence of unequivocal hyperglycemia, results should be confirmed by repeat testing. The classification and Diagnosis of Diabetes Diabetes Care 2021; 46: S19-S40. Current interpretive data was last revised 2022. 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 All images stored on PACS. CONTRAST TYPE/DOSE: 15mL of GADOTERATE MEGLUMINE 0.5 MMOL/ML INTRAVENOUS SOLUTION (SO) injected via intravenous COMPARISON: CT abdomen dated August 14, 2024. MRI abdomen dated November 14, 2023. FINDINGS: LOWER CHEST: No effusion. LIVER: Normal size. No mass. No cysts. GALLBLADDER: No stones, wall thickening or pericholecystic fluid BILE DUCTS: No intrahepatic or extrahepatic ductal dilatation. SPLEEN: Normal size. No focal lesions. PANCREAS: No masses. No adjacent inflammation or peripancreatic fluid collections. Pancreatic duct not dilated ADRENALS: Normal. KIDNEYS/URINARY TRACT: No solid masses. No cysts. No hydronephrosis or hydroureter. Symmetric enhancement. 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 Involving the excluded stomach along the greater curvature of the stomach distal immediately proximal to the pylorus is cystic like structure which appears to communicate with the gastric wall. On coronal images this appears to have a dumbbell shape and measures a maximum of 2 x 0.8 cm (series 501, image 13; previously 2 x 0.7 cm remeasured). Allowing for difference in technique this is stable. There is no enhancement on postcontrast imaging.. PERITONEUM: No ascites. RETROPERITONEUM: No mass or adenopathy. VASCULATURE: No abdominal aortic aneurysm. MUSCULOSKELETAL: No acute findings. OTHER: No other abnormality. 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 Involving the excluded stomach along the greater curvature of the stomach distal immediately proximal to the pylorus is cystic like structure which appears to communicate with the gastric wall. On coronal images this appears to have a dumbbell shape and measures a maximum of 2 x 0.8 cm. Allowing for difference in technique this is stable. There is no enhancement on postcontrast imaging. This is nonspecific however given the stability likely favors a benign process. Continued follow-up is recommended. 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 All images stored on PACS. CONTRAST TYPE/DOSE: 15mL of GADOTERATE MEGLUMINE 0.5 MMOL/ML INTRAVENOUS SOLUTION (SO) injected via intravenous COMPARISON: CT abdomen dated August 14, 2024. MRI abdomen datedDece2022. FINDINGS: LOWER CHEST: No effusion. LIVER: Normal size. No mass. No cysts. GALLBLADDER: No stones, wall thickening or pericholecystic fluid BILE DUCTS: No intrahepatic or extrahepatic ductal dilatation. SPLEEN: Normal size. No focal lesions. PANCREAS: No masses. No adjacent inflammation or peripancreatic fluid collections. Pancreatic duct not dilated ADRENALS: Normal. KIDNEYS/URINARY TRACT: No solid masses. No cysts. No hydronephrosis or hydroureter. Symmetric enhancement. 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 Involving the excluded stomach along the greater curvature of the stomach distalimmediately proximal to the pylorus is cystic like structure which appears tocommunicate with the gastric wall. On coronal images this appears to have a dumbbell shape and measures a maximum of 2 x 0.8 cm (series 501, image 13;previously 2 x 0.7 cm remeasured). Allowing for difference in technique this isstable. There is no enhancement on postcontrast imaging.. PERITONEUM: No ascites. RETROPERITONEUM: No mass or adenopathy. VASCULATURE: No abdominal aortic aneurysm. MUSCULOSKELETAL: No acute findings. OTHER: No other abnormality. 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 Involving the excluded stomach along the greater curvature of the stomach distal immediately proximal to the pylorus is cystic like structure which appears to communicate with the gastric wall. On coronal images thisappears to have a dumbbell shape and measures a maximum of 2 x 0.8 cm. Allowingfor difference in technique this is stable. There is no enhancement on postcontrast imaging. This is nonspecific however given the stabilitylikely favors a benign process. Continued follow-up is recommended. THIS IS AN ELECTRONICALLY VERIFIED FINAL REPORT 11/24/2024 10:15 AM - Electronically signed by Vasyl YANCEY T: Report ID: [id number] Reading Location: [place] [address] us Barbi Chavez SWITCHBOARD OPERATOR RECEPTIONIST IMG MRI PROCEDURES Final Result * US Pelvis Complete (11/23/2024 5:52 PM PREP PERSON) Anatomical Region Laterality Modality Pelvis N/A Ultrasound 11/24/2024 10:1 5 AM PREP PERSON Narrative 11/24/2024 10:16 AM PREP PERSON EXAM DESCRIPTION: US PELVIS COMPLETE REASON FOR STUDY: History of right ovarian cyst for follow-up. TECHNIQUE: Grayscale ultrasound of the pelvic contents was performed with transabdominal transducer. Please note patient refused transvaginal imaging. COMPARISON: Pelvic ultrasound dated August 23, 2024 FINDINGS: UTERUS: The uterus is anteverted. The uterus is homogenous in echotexture and measures 5.7 x 5.5 x 7.8 cm. There is a 2.9 x 3.2 x 3 cm fibroid at the uterine fundus on the left. ENDOMETRIUM: The endometrium measures 0.6 cm in thickness. RIGHT OVARY: The right ovary measures 2.7 x 3.9 x 4 cm. There is documentation of color Doppler flow in the right ovary. The right ovary appears unremarkable. LEFT OVARY: The left ovary is not visualized. No adnexal mass. PELVIC FLUID: There is no evidence of free fluid in the pelvis. OTHER: No other significant findings. IMPRESSION: 3.2 cm fibroid at the uterine fundus on the left. Left ovary not visualized. No adnexal mass. THIS IS AN ELECTRONICALLY VERIFIED FINAL REPORT 11/24/2024 10:16 AM - Electronically signed by Vasyl YANCEY T: Report ID: [id number] Reading Location: [id number] Procedure Note Vasyl Ayala MD - 11/24/2024 EXAM DESCRIPTION: US PELVIS COMPLETE REASON FOR STUDY: History of right ovarian cyst for follow-up. TECHNIQUE: Grayscale ultrasound of the pelvic contents was performed with transabdominal transducer. Please note patient refused transvaginal imaging. COMPARISON: Pelvic ultrasound dated August 23, 2024 FINDINGS: UTERUS: The uterus is anteverted. The uterus is homogenousin echotexture and measures 5.7 x 5.5 x 7.8 cm. There is a 2.9 x 3.2 x 3cm fibroid at the uterine fundus on the left. ENDOMETRIUM: The endometrium measures 0.6 cm in thickness. RIGHT OVARY: The right ovary measures 2.7 x 3.9 x 4 cm. There is documentation of color Doppler flow in the right ovary. The right ovary appears unremarkable. LEFT OVARY: The left ovary is not visualized. No adnexal mass. PELVIC FLUID: There is no evidence of free fluid in the pelvis. OTHER: No other significant findings. IMPRESSION: 3.2 cm fibroid at the uterine fundus on the left. Left ovary not visualized. No adnexal mass. THIS IS AN ELECTRONICALLY VERIFIED FINAL REPORT 11/24/2024 10:16 AM - Electronically signed by Vasyl YANCEY T: Report ID: [id number] Reading Location: [id number] Kodak Haq MD IMG US PROCEDURES Final Result * Screening Mammogram Bilateral W Tony (08/25/2024 3:21 PM CDT) Anatomical Region Laterality Modality Breast Bilateral Mammography Impressions 08/25/2024 3:33 PM CDT BI-RADS ATLAS category (overall): 1 - Negative There is no mammographic evidence of malignancy. A 1 year screening mammogram is recommended. The patient has been or will be contacted. We recommend annual screening mammography for women at average risk of breast cancer beginning at age 40, based on guidelines of the [place] [employer] (ACR Practice Parameter for the Performance of Screening and Diagnostic Mammography) and [place] [employer]. For women with and elevated risk of breast cancer, please refer to the ACR Practice Parameter for specific screening recommendations. The patient will be entered into a reminder system with a target due date of 1 year for her next screening exam. Narrative 08/25/2024 3:33 PM CDT Screening Mammogram Bilateral W Tony: 08/25/24 The study was acquired using full field digital technology and interpreted from soft copy. 2D digital mammographic views, as well as 3D digital tomosynthesis were performed in the CC and MLO projections. CLINICAL: Screening mammogram, encounter for. No relevant medical history has been documented for this patient. History of breast cancer in Neg Hx. No comparisons were made when reading this study. BREAST TISSUE: There are scattered areas of fibroglandular density. FINDINGS: No suspicious masses, suspicious calcifications, or other suspicious findings are seen within either breast. There has been no suspicious change. us Self Screening Mammogram IMG MAMMO PROCEDURES Fi nal Result * (ABNORMAL) Hemoglobin A1c (06/16/2024 10:58 AM CDT) Hgb A1C 8.3(H) 4.0 - 5.6 % ANDREW CORTES Estimated Average Glucose 192 mg/dL ANDREW CORTES Comment: The ADA recommends reporting an estimated Average Glucose (eAG) with all Hemoglobin A1c results using the equation derived from a study of 507 normal and diabetic adults. Minority populations were underrepresented and children were not included. (Diabetes Care 31:6761-8792, 2008). The eAG is not equivalent to a fasting glucose. Blood 06/16/2024 10:5 8 AM CDT 06/16/2024 11:14 AM CDT us Jeffery Abbott NP LAB BLOOD ORDERABLES Final Result [facility] [address] [facility]. [place] [address] * (ABNORMAL) Lipid panel (06/16/2024 10:58 AM CDT) Cholesterol 226(H) 30 - 199 mg/dL ANDREW CORTES Comment: Interpretive Data Ages < or = 19 years Acceptable: <170 mg/dL Borderline high: 170-199 mg/dL High: >or= 200 mg/dL Ages > or = 20 years Desirable: <200 mg/dL Borderline high: 200-239 mg/dL High: >or= 240 mg/dL Literature References: 1. Expert Panel on Integrated Guidelines for Cardiovascular Health and Risk Reduction in Children and Adolescents. Pediatrics 2011;128:S213 2. NCEP Expert Panel. Circulation 2004;110:227 Current Interpretive Data was last revised on 2018. Triglycerides 63 <=149 mg/dL ANDREW CORTES Comment: Interpretive Data Ages < or = 9 years Acceptable: <75 mg/dL Borderline high: 75-99 mg/dL High: >or= 100 mg/dL Ages 10 to 20 years Acceptable: <90 mg/dL Borderline high: 90-129 mg/dL High: >or= 130 mg/dL Ages > or = 20 years Desirable: <150 mg/dL Borderline high: 150-199 mg/dL High: 200-499 mg/dL Very high: >or= 499 mg/dL Literature References: 1. Expert Panel on Integrated Guidelines for Cardiovascular Health and Risk Reduction in Children and Adolescents. Pediatrics 2011;128:S213 2. NCEP Expert Panel. Circulation 2004;110:227 Current Interpretive Data was last revised on 2018. HDL 83 >=40 mg/dL ANDREW CORTES Comment: Interpretive Data Ages < or = 19 years Acceptable: >45 mg/dL Borderline low: 40-45 mg/dL Low: <40 mg/dL Ages > or = 20 years Desirable: >or= 60 mg/dL Low: <40 mg/dL Literature References: 1. Expert Panel on Integrated Guidelines for Cardiovascular Health and Risk Reduction in Children and Adolescents. Pediatrics 2011;128:S213 2. NCEP Expert Panel. Circulation 2004;110:227 Current Interpretive Data was last revised on 2018. LDL, calculated 130(H) <=129 mg/dL ANDREW CORTES Comment: Interpretive Data Ages < or = 19 years Acceptable: <110 mg/dL Borderline high: 110-129 mg/dL High: >or= 130 mg/dL Ages > or = 20 years Optimal: <100 mg/dL Near optimal: 100-129 mg/dL Borderline high: 130-159 mg/dL High: >160 mg/dL Literature References: 1. Expert Panel on Integrated Guidelines for Cardiovascular Health and Risk Reduction in Children and Adolescents. Pediatrics 2011;128:S213 2. NCEP Expert Panel. Circulation 2004;110:227 Current Interpretive Data was last revised on 2018. Non-HDL Cholesterol 143 mg/dL ANDREW CORTES Comment: Interpretive Data Ages < or = 19 years Acceptable: <120 mg/dL Borderline high: 120-144 mg/dL High: >145 mg/dL Ages > or = 20 years When triglycerides are >200 mg/dL, Non-HDL cholesterol is a secondary target of therapy with treatment goals that are 30 mg/dL greater than the LDL cholesterol target. Literature References: 1. Expert Panel on Integrated Guidelines for Cardiovascular Health and Risk Reduction in Children and Adolescents. Pediatrics 2011;128:S213 2. NCEP Expert Panel. Circulation 2004;110:227 Current Interpretive Data was last revised on 2018. Chol/HDL ratio 3 ANDREW CORTES Blood 06/16/2024 10:5 8 AM CDT 06/16/2024 12:49 PM CDT Jeffery Abbott NP LAB BLOOD ORDERABLES Final Result [facility]W [facility] [address] [facility]. Department [place] [employer] [place] [address] * ThinPrep Pap with HPV (07/13/2021 11:05 AM CDT) Pap test 07/13/2021 11:0 5 AM CDT 07/16/2021 11:05 AM CDT Narrative 07/20/2021 2:56 PM CDT [facility] Department of Pathology [address] [place], [place] [id number] Final Report with Addendum Note to Patients: This report may contain a detailed description of human tissue sent by a health care provider to the laboratory for pathologic evaluation. The content of this report is essential for diagnosis and may provide important critical findings. This information may be unfamiliar to patients to review without a medical professional present. It is advised that the patient review this report in the presence of a health care provider who can answer questions and explain the details. Patient Name: AMADA JAY Address: [address] [place] [address] Gender: F : 1975 (Age: 46) Service: Laboratory Location: N : [id number] [facility] #: [id number] Patient Type: Taken: 07/13/2021 Received: 07/16/2021 Accessioned:: 07/18/2021 Reported: 07/20/2021 Physician(s): Kodak Haq M.D. [facility] Diagnosis: Source of Specimen: Imaged Thinprep Pap Test plus HPV - Information Systems Coordinator Cytologic Material Specimen Adequacy: - Specimen satisfactory for interpretation; endocervical/transformation zone component absent or insufficient General Category: - Negative for intraepithelial lesion or malignancy RAVEN Mcdermott(ASCP) RAVEN Dewitt(ASCP) Report Electronically Reviewed and Signed Out By RAVEN Dewitt(ASCP) 07/20/2021 14:56:12 Addenda: HPV Test Interpretation NEGATIVE for types 16, 18, 31, 33, 35, 39, 45, 51, 52, 56, 58, 59, 66 and 68. Test performed utilizing Gen-Probe Aptima assay. RAVEN Dewitt(ASCP) Report Electronically Reviewed and Signed Out By RAVEN Dewitt(ASCP) 07/19/2021 12:26:33 Specimen(s) Received: A: Imaged Thinprep Pap Test plus HPV - Information Systems Coordinator Cytologic Material Clinical History: Menstrual History: Ablation The Pap test is a screening test used to aid in the detection of cervical cancer and its precursors. It should not be the sole means by which malignant and premalignant lesions are diagnosed. Both false negative and false positive results may occur. It also has poor sensitivity for the detection of endometrial lesions and should not be used to evaluate suspected endometrial abnormalities. For these reasons it is most important to obtain Pap tests at regular intervals. The performance characteristics of some immunohistochemical stains, fluorescence in-situ hybridization tests and immunophenotyping by flow cytometry cited in this report (if any) were determined by the Surgical Pathology Department at [facility] as part of an ongoing senior quality technician program and in compliance with federally mandated regulations drawn from the Clinical Laboratory Improvement Act of 1988 (CLIA '88). Some of these tests rely on the use of analyte specific reagents and are subject to specific labeling requirements by the US Food and Drug Administration. Such diagnostic tests may only be performed in a facility that is certified by the Department of Health and Human Services as a high complexity laboratory under CLIA '88. The FDA has determined that such clearance or approval is not necessary. This test is used for clinical purposes. It should not be regarded as investigational or for research. Nevertheless, federal rules concerning the medical use of analyte specific reagents require that the following disclaimer be attached to the report: This test was developed and its performance characteristics determined by the Surgical Pathology Department [facility]. It has not been cleared or approved by the U. S. Food and Drug Administration. Kodak Haq MD LAB CYTOLOGY ORDERABLES Final Result from Last 3 Months or Most Recently Relevant to Health Maintenance Insurance [facility] * Guarantor: Amada Jay Account Type Relation to Patient Date of Phone Billing Address Workers Comp Employer [employer] Advance Directives For more information, please contact: [phone] * Full Code (Latest Code Status on File) Date Activated Date Inactivated Comments 08/07/2023 8:40 AM 08/07/2023 2:26 PM * Full Code Date Activated Date Inactivated Comments 05/02/2023 11:55 AM 05/03/2023 7:05 PM * Full Code Date Activated Date Inactivated Comments 03/13/2023 8:07 AM 03/13/2023 1:58 PM Care Teams Consumer Safety Officer Relationship Specialty Start Date End Date Laura Roland PA [address] [place] [id number] PCP - General Physician Salon Stylist 09/25/22
--- OUTSIDE RECORDS SUMMARY | 2025-02-05 07:49 | XMS_ITS | Continuity of Care Document ---
Author Organization [facility] Address [address] [place] [address] [address] [place] [address] Phone Care Team Providers Care Table Tender Name Role Phone Findeiss OTR/L, CHT, Louis Unavailable Unava ilable Procedures Procedure Date Orthotic Mgmt and Training Long Arm Splint wrist included 19 Progress Note Therapeutic Exercise Therapeutic Activities Neuromuscular Re-Ed Manual Therapy Hot or Cold Pack Therapeutic Exercise Therapeutic Activities Neuromuscular Re-Ed Manual Therapy Hot or Cold Pack Therapeutic Exercise Therapeutic Activities Neuromuscular Re-Ed Manual Therapy Hot or Cold Pack Therapeutic Exercise Therapeutic Activities Neuromuscular Re-Ed Manual Therapy Hot or Cold Pack Therapeutic Exercise Therapeutic Activities Neuromuscular Re-Ed Manual Therapy Hot or Cold Pack Therapeutic Exercise Therapeutic Activities Neuromuscular Re-Ed Manual Therapy Hot or Cold Pack Therapeutic Exercise Therapeutic Activities Neuromuscular Re-Ed Manual Therapy Hot or Cold Pack Progress Note Therapeutic Exercise Therapeutic Activities Neuromuscular Re-Ed Manual Therapy Hot or Cold Pack Progress Note Therapeutic Exercise Therapeutic Activities Neuromuscular Re-Ed Hot or Cold Pack Therapeutic Exercise Therapeutic Activities Neuromuscular Re-Ed Manual Therapy Hot or Cold Pack Therapeutic Exercise Therapeutic Activities Neuromuscular Re-Ed Manual Therapy Hot or Cold Pack Therapeutic Exercise Therapeutic Activities Neuromuscular Re-Ed Manual Therapy Hot or Cold Pack Therapeutic Exercise Therapeutic Activities Neuromuscular Re-Ed Manual Therapy Therapeutic Exercise Therapeutic Activities Neuromuscular Re-Ed Manual Therapy Hot or Cold Pack Therapeutic Exercise Therapeutic Activities Neuromuscular Re-Ed Manual Therapy Hot or Cold Pack Therapeutic Exercise Therapeutic Activities Manual Therapy Hot or Cold Pack Therapeutic Exercise Therapeutic Activities Neuromuscular Re-Ed Hot or Cold Pack Therapeutic Exercise Therapeutic Activities Neuromuscular Re-Ed Manual Therapy Hot or Cold Pack Therapeutic Exercise Therapeutic Activities Neuromuscular Re-Ed Manual Therapy Hot or Cold Pack Therapeutic Exercise Neuromuscular Re-Ed Manual Therapy Hot or Cold Pack Therapeutic Exercise Neuromuscular Re-Ed Manual Therapy Therapeutic Exercise Therapeutic Activities Neuromuscular Re-Ed Manual Therapy Hot or Cold Pack Progress Note Therapeutic Exercise Therapeutic Activities Neuromuscular Re-Ed Manual Therapy Hot or Cold Pack Ultrasound Therapeutic Exercise Therapeutic Activities Hot or Cold Pack PT Evaluation Moderate Complexity Therapeutic Exercise Manual Therapy Therapeutic Exercise Therapeutic Activities Neuromuscular Re-Ed Manual Therapy Hot or Cold Pack Ultrasound Therapeutic Exercise Therapeutic Activities Neuromuscular Re-Ed Manual Therapy Hot or Cold Pack Ultrasound OT Re-Evaluation Therapeutic Exercise Therapeutic Activities Hot or Cold Pack Ultrasound Therapeutic Exercise Therapeutic Activities Neuromuscular Re-Ed Manual Therapy Hot or Cold Pack Ultrasound Therapeutic Exercise Therapeutic Activities Neuromuscular Re-Ed Manual Therapy Hot or Cold Pack Ultrasound Therapeutic Exercise Therapeutic Activities Neuromuscular Re-Ed Manual Therapy Hot or Cold Pack Ultrasound Therapeutic Exercise Therapeutic Activities Neuromuscular Re-Ed Manual Therapy Hot or Cold Pack Ultrasound OT Evaluation Moderate Complexity Therapeutic Exercise Neuromuscular Re-Ed Manual Therapy Hot or Cold Pack Ultrasound Advance Directives Directive Yes / No Effective Date File Name No Information Encounters Encounter Description Practice Location Reason(s) For Visit Diagnoses Date Provider Providers Copied on Encounter [facility] [address] [address], [place], [place], [id number], tel:[phone] Karuna Degroot Stiffness of right elbow, not elsewhere classifiedPain in right elbowMuscle weakness (generalized)Effu keshawn, right elbowLesion of radial nerve, right upper limbLateral epicondylitis, right elbow 9 Willy Myers. . Referring Provider: Santo Kahn, [address] [facility] [address] 6A/6B/12A, [place], [address]. tel:[phone] [place] [address] [address] [address], [place], [place], [id number], tel:[phone] [place] Pain in right elbowPain in right wristOth symptoms and signs involving the musculoskeletal systemMuscle wasting and atrophy, NEC, right forearmAnesthesia of skinLateral epicondylitis, right elbowLesion of radial nerve, right upper limb 8 Emma Araujo. . Referring Provider: Santo Kahn, Balwinder1 [facility] [address] 6A/6B/12A, [place], [address]. tel:[phone] [place] [address] [address] [address], [place], [place], [id number], [place] tel:[phone] [place] Pain in right elbowPain in right wristOth symptoms and signs involving the musculoskeletal systemMuscle wasting and atrophy, NEC, right forearmAnesthesia of skinLateral epicondylitis, right elbowLesion of radial nerve, right upper limb Oct- 8-201 8 Farzad Carvajal. [address] [facility], [address], [place], [address], [place]. tel:[phone] Referring Provider: Santo Kahn, Balwinder[address] [facility] [address] 6A/6B/12A, [place], [address]. tel:[phone] [place] [address] [facility] 300, [place], [place], [id number], tel:[phone] [place] Pain in right elbowPain in right wristOth symptoms and signs involving the musculoskeletal systemMuscle wasting and atrophy, NEC, right forearmAnesthesia of skinLateral epicondylitis, right elbowLesion of radial nerve, right upper limb Oct-0 3-201 8 Panda Alena. [address] [place] [address], [address], [place], [place], [facility], . tel:[phone] Referring Provider: Santo Kahn, Baliwnder[address] 6A/6B/12A, [place], [address]. tel:[phone] [place] [address] [address] [address], [place], [place], [id number], tel:[phone] [place] Pain in right elbowPain in right wristOth symptoms and signs involving the musculoskeletal systemMuscle wasting and atrophy, NEC, right forearmAnesthesia of skinLateral epicondylitis, right elbowLesion of radial nerve, right upper limb Oct-0 1-201 8 Panda Alena. [address] [place] [address], [address], [place], [place], [facility], [place]. tel:[phone] Referring Provider: Adriana Tan [address]B/[address]A, [place], [address]. tel:[phone] [place] [address], [id number], tel:[phone] [place] Pain in right elbowPain in right wristOth symptoms and signs involving the musculoskeletal systemMuscle wasting and atrophy, NEC, right forearmAnesthesia of skinLateral epicondylitis, right elbowLesion of radial nerve, right upper limb Sep-2 6-201 8 Panda Alena. [address] [place] [address], [address], [place], [place], [facility], . tel:[phone] Referring Provider: Balwinder Tan[address] 6A/6B/12A, [place], [address]. tel:[phone] [place] [address] [place] [address] 300, [place], [place], [id number], tel:[phone] [place] Pain in right elbowPain in right wristOth symptoms and signs involving the musculoskeletal systemMuscle wasting and atrophy, NEC, right forearmAnesthesia of skinLateral epicondylitis, right elbowLesion of radial nerve, right upper limb Sep-2 4-201 8 Panda Alena. [address] [place] [address], [address], [place], [place], [facility], . tel:[phone] Referring Provider: Santo Kahn, [address] [facility] [address] 6A/6B/12A, [place], [address]. tel:[phone] [place] [address] [place] [address] 300, [place], [place], [id number], tel:[phone] [place] Pain in right elbowPain in right wristOth symptoms and signs involving the musculoskeletal systemMuscle wasting and atrophy, NEC, right forearmAnesthesia of skinLateral epicondylitis, right elbowLesion of radial nerve, right upper limb Sep-2 1-201 8 Panda Alena. [address] [place] [address], [address], [place], [place], [facility], [place]. tel:[phone] Referring Provider: Santo Kahn, Balwinder[address] [facility] [address] 6A/6B/12A, [place], [address]. tel:[phone] [place] [address] [place] [address], [id number], tel:[phone] [place] Pain in right elbowPain in right wristOth symptoms and signs involving the musculoskeletal systemMuscle wasting and atrophy, NEC, right forearmAnesthesia of skinLateral epicondylitis, right elbowLesion of radial nerve, right upper limb Sep-1 9-201 8 Panda Alena. [address] [place] [address], [address], [place], [place], [facility], [place]. tel:[phone] Referring Provider: Santo Kahn [address] [facility] [address] 6A/6B/12A, [place], [address]. tel:[phone] [facility], [address], [place], [place], [id number], [place] tel:[phone] [place] Muscle weakness (generalized)Stif fness of right ankle, not elsewhere classifiedOther specified disorders of musclePain in right ankle and joints of right footAchilles tendinitis, right leg Sep-1 9-201 8 [facility] [address] [place] [address], [address], [place], [address], [place]. tel:[phone] Referring Provider: Demarcus Warren[address] [place] [address], [address]. tel:[phone] [facility] [address] [facility] [address], [place], [place], [id number], [place] tel:[phone] [place] Muscle weakness (generalized)Stif fness of right ankle, not elsewhere classifiedOther specified disorders of musclePain in right ankle and joints of right footAchilles tendinitis, right leg Sep-1 0-201 8 [facility]. [address] [place] [address], [address], [place], [address], [place]. tel:[phone] Referring Provider: Demarcus Warren[address] [place] [address], [address]. tel:[phone] [facility], [address] [facility] [address], [place], [place], [id number], [place] tel:[phone] [place] Pain in right elbowPain in right wristOth symptoms and signs involving the musculoskeletal systemMuscle wasting and atrophy, NEC, right forearmAnesthesia of skinLateral epicondylitis, right elbowLesion of radial nerve, right upper limb Sep-1 0-201 8 Keri Denise. . Referring Provider: Santo Kahn, [facility] 6A/6B/12A, [place], [address]. tel:[phone] [facility], [address], [place], [place], [id number], [place] tel:[phone] [place] Pain in right elbowPain in right wristOth symptoms and signs involving the musculoskeletal systemMuscle wasting and atrophy, NEC, right forearmAnesthesia of skinLateral epicondylitis, right elbowLesion of radial nerve, right upper limb Sep-0 7-201 8 Farzad Carvajal. [address] [facility], [address], [place], [address], [place]. tel:[phone] Referring Provider: Santo Kahn, [address] [facility] 6A/6B/12A, [place], [address]. tel:[phone] [facility], [address] [facility], [place], [place], [id number], [place] tel:[phone] [place] Muscle weakness (generalized)Stif fness of right ankle, not elsewhere classifiedOther specified disorders of musclePain in right ankle and joints of right footAchilles tendinitis, right leg Sep-0 7-201 8 Joe Stoddard. . Referring Provider: Demarcus Warren[address] [place], [address]. tel:[phone] [facility], [address] [facility], [place], [place], [id number], [place] tel:[phone] [place] Muscle weakness (generalized)Stif fness of right ankle, not elsewhere classifiedOther specified disorders of musclePain in right ankle and joints of right footAchilles tendinitis, right leg Sep-0 6-201 8 Demetris Henderson. [address] [facility], [address], [place], [address], [place]. tel:[phone] Referring Provider: Hank Vigil [address] [place], [address]. tel:[phone] [facility] [address], [place], [place], [id number], [place] tel:[phone] [place] Pain in right elbowPain in right wristOth symptoms and signs involving the musculoskeletal systemMuscle wasting and atrophy, NEC, right forearmAnesthesia of skinLateral epicondylitis, right elbowLesion of radial nerve, right upper limb Sep-0 5-201 8 Farzad Carvajal. [address] [place] [address], [address], [place], [address], [place]. tel:[phone] Referring Provider: Santo Kahn, [facility] 6A/6B/12A, [place], [address]. tel:[phone] [facility], [address] [place], [place] [address], [place], [place], [id number], [place] tel:[phone] [place] Muscle weakness (generalized)Stif fness of right ankle, not elsewhere classifiedOther specified disorders of musclePain in right ankle and joints of right footAchilles tendinitis, right leg Sep-0 8 Demetris Henderson. [address] [place] [address], [facility] 105, [place], [place], [facility], [place]. tel:[phone] Referring Provider: Hank Vigil [address] [place] [address], [address]. tel:[phone] [facility], [address] [place] [address] 300, [place], [place], [id number], [place] tel:[phone] [place] Muscle weakness (generalized)Stif fness of right ankle, not elsewhere classifiedOther specified disorders of musclePain in right ankle and joints of right footAchilles tendinitis, right leg Jun- 8 Demetris Henderson. [address] [place] [address], [address] [address], [place], [place], [facility], [place]. tel:[phone] Referring Provider: Hank Vigil [facility]2 [place], [address]. tel:[phone] [facility], [address] [facility] 300, [place], [place], [id number], [place] tel:[phone] [place] Pain in right elbowPain in right wristOth symptoms and signs involving the musculoskeletal systemMuscle wasting and atrophy, NEC, right forearmAnesthesia of skinLateral epicondylitis, right elbowLesion of radial nerve, right upper limb Jun- 8 Farzad Carvajal. [address] [place] [address], [address], [place], [address], [place]. tel:[phone] Referring Provider: Santo Kahn, [address] [facility] [address] 6A/6B/12A, [place], [address]. tel:[phone] [facility] [address], [place], [place], [id number], [place] tel:[phone] [place] Pain in right elbowPain in right wristOth symptoms and signs involving the musculoskeletal systemMuscle wasting and atrophy, NEC, right forearmAnesthesia of skinLateral epicondylitis, right elbowLesion of radial nerve, right upper limb 8 Pandatamiko Carvajal. [address] [place] [address], [address], [place], [facility], . tel:[phone] Referring Provider: Santo Kahn, [address] [facility] [address] 6A/6B/12A, [place], [address]. tel:[phone] [place] [address], [id number], [place] tel:[phone] [place] Muscle weakness (generalized)Stif fness of right ankle, not elsewhere classifiedOther specified disorders of musclePain in right ankle and joints of right footAchilles tendinitis, right leg 8 [facility]. [address] [place] [address], [address], [place], [place], [facility], [place]. tel:[phone] Referring Provider: Shine Warren, [place], [address]. tel:[phone] [facility] [address] [facility] [address], [place], [place], [id number], [place] tel:[phone] [place] Muscle weakness (generalized)Stif fness of right ankle, not elsewhere classifiedOther specified disorders of musclePain in right ankle and joints of right footAchilles tendinitis, right leg 8 Willson Beatriz. [address] [place] [address], [address], [place], [place], [facility], [place]. tel:[phone] Referring Provider: Shine Warren, [place], [address]. tel:[phone] [facility] [facility], [place], [place], [address], [place] tel:[phone] [place] Pain in right elbowPain in right wristOth symptoms and signs involving the musculoskeletal systemMuscle wasting and atrophy, NEC, right forearmAnesthesia of skinLateral epicondylitis, right elbowLesion of radial nerve, right upper limb 8 Panda Alena. [address] [facility], [address], [place], [address], [place]. tel:[phone] Referring Provider: Balwinder Tan[address] [facility] [address] 6A/6B/12A, [place], [address]. tel:[phone] [place] [address], [address] [address], [place], [place], [address], [place] tel:[phone] [place] Pain in right elbowPain in right wristOth symptoms and signs involving the musculoskeletal systemMuscle wasting and atrophy, NEC, right forearmAnesthesia of skinLateral epicondylitis, right elbowLesion of radial nerve, right upper limb 8 Farzad Carvajal. [address] [place] [address], [address], [place], [address], [place]. tel:[phone] Referring Provider: Balwinder Tan[address] [facility] [address] 6A/6B/12A, [place], [address]. tel:[phone] [facility] [address], [place], [place], [id number], [place] tel:[phone] [place] Muscle weakness (generalized)Stif fness of right ankle, not elsewhere classifiedOther specified disorders of musclePain in right ankle and joints of right footAchilles tendinitis, right leg 8 Demetris Henderson. [address] [facility], [address], [place], [address], [place]. tel:[phone] Referring Provider: Hank Vigil, [address] [place], [address]. tel:[phone] [facility], [address], [id number], tel:[phone] [place] Muscle weakness (generalized)Stif fness of right ankle, not elsewhere classifiedOther specified disorders of musclePain in right ankle and joints of right footAchilles tendinitis, right leg 8 Demetris Henderson. [address] [place] [address], [address], [place], [place], [facility], [place]. tel:[phone] Referring Provider: [place], [address]. tel:[phone] [facility] [address], [place], [place], [address], tel:[phone] [place] Pain in right elbowPain in right wristOth symptoms and signs involving the musculoskeletal systemMuscle wasting and atrophy, NEC, right forearmAnesthesia of skinLateral epicondylitis, right elbowLesion of radial nerve, right upper limb 8 Farzad Carvajal. [address] [place] [address], [address], [place], [place], [facility], [place]. tel:[phone] Referring Provider: Adriana Tan [facility] [address] 6A/6B/12A, [place], [address]. tel:[phone] [facility], [id number], [place] tel:[phone] [place] Pain in right elbowPain in right wristOth symptoms and signs involving the musculoskeletal systemMuscle wasting and atrophy, NEC, right forearmAnesthesia of skinLateral epicondylitis, right elbowLesion of radial nerve, right upper limb 8 Farzad Carvajal. [address] [place] [address], [address], [place], [address], [place]. tel:[phone] Referring Provider: Balwinder Tan[address] [facility] [address] 6A/6B/12A, [place], [address]. tel:[phone] [place] [address], [address] [address], [place], [place], [address], tel:[phone] [place] Pain in right elbowPain in right wristOth symptoms and signs involving the musculoskeletal systemMuscle wasting and atrophy, NEC, right forearmAnesthesia of skinLateral epicondylitis, right elbowLesion of radial nerve, right upper limb 8 Pandatamiko Carvajal. [address] [place] [address], [address], [place], [place], [facility], . tel:[phone] Referring Provider: Balwinder Tan[address] 6A/6B/12A, [place], [address]. tel:[phone] [place] [address], [address] [facility] 300, [place], [place], [id number], tel:[phone] [place] Pain in right elbowPain in right wristOth symptoms and signs involving the musculoskeletal systemMuscle wasting and atrophy, NEC, right forearmAnesthesia of skinLateral epicondylitis, right elbowLesion of radial nerve, right upper limb 8 Pandatamiko Caleroa. [address] [place] [address], [address], [place], [place], [facility], . tel:[phone] Referring Provider: Adriana Tna [address] 6A/[address]B/12A, [place], [address]. tel:[phone] [place], [place] [address] [address], [id number], tel:[phone] [place] Pain in right elbowPain in right wristOth symptoms and signs involving the musculoskeletal systemMuscle wasting and atrophy, NEC, right forearmAnesthesia of skinLateral epicondylitis, right elbowLesion of radial nerve, right upper limb 8 Panda Alena. [address] [place] [address], [address], [place], [place], [facility], . tel:[phone] Referring Provider: Balwinder Tan[address] 6A/[address]B/12A, [place], [address]. tel:[phone] [place] [address], [address] [facility] 300, [place], [place], [address], tel:[phone] [place] Pain in right elbowPain in right wristOth symptoms and signs involving the musculoskeletal systemMuscle wasting and atrophy, NEC, right forearmAnesthesia of skinLateral epicondylitis, right elbowLesion of radial nerve, right upper limb May- 6- 8 Panda Alena. [address] [place] [address], [address], [place], [facility], . tel:[phone] Referring Provider: Adriana Tan [address], [place], [address]. tel:[phone] [place] [address] [address] [address], [place], [place], [id number], tel:[phone] [place] Pain in right elbowPain in right wristOth symptoms and signs involving the musculoskeletal systemMuscle wasting and atrophy, NEC, right forearmAnesthesia of skinLateral epicondylitis, right elbowLesion of radial nerve, right upper limb March- 8 Panda Alena. [address] [place] [address], [address], [place], [place], [facility], . tel:[phone] Referring Provider: Adriana Tan [address]A/[address]A, [place], [address]. tel:[phone] [place] [address] [address] [address], [place], [place], [address], tel:[phone] [place] Pain in right elbowPain in right wristOth symptoms and signs involving the musculoskeletal systemMuscle wasting and atrophy, NEC, right forearmAnesthesia of skinLateral epicondylitis, right elbowLesion of radial nerve, right upper limb May-0 9-201 8 Panda Alena. [address] [place] [address], [address], [place], [place], [facility], . tel:[phone] Referring Provider: Adriana Tan [address] 6A/[address]B/12A, [place], [address]. tel:[phone] Family History Family Member Type Diagnosis Age At Onset No Information Payers Payer name Insurance type Covered libertarian ID Authorfabiolaa frances(s) Tesha Richter [facility] [id number] [facility] [id number] Social History Type Description Quantity Date Captured Comments Sex Female Smoking Status No Information Chief Complaint And Reason For Visit No Information Reason For Referral Reason For Referral No Information History Of Present Illness Encounter Date Complaint History Of Prese nt Illness No Information Functional Status Date Functional Assessmen t No Information Instructions Date Instruction Additional Infor mation No Information Assessments Type Assessment Date No Information Patient Care Teams Name Effective Dates (start - stop) Status Members No Information
--- OUTSIDE RECORDS SUMMARY | 2025-02-05 07:50 | XMS_ITS | Encounter Summary ---
Author Organization [facility] Healthcare Address [address] [place] [address] Care Team Providers Care Leach Tank Tender Name Role Phone Laura Roland Primary Care Provider [phone] Encounter Details Date Type Department Care Team (Late st Contact Info) Description 03/05/2023 Telephone Outpatient Nutrition Counseling [address] [facility] [address] [place] [address] Jaz Taylor Social History Tobacco Use Types Packs/Day Years Used Date Smoking Tobacco: Never Smokeless Tobacco: Never Alcohol Use Standard Drinks/Week Comments No 0 (1 standard drink = 0.6 oz pur e alcohol) AUDIT-C Answer Date Recorded Q1: How often do you have a drink containing alcohol? Never 10/01/2022 Q2: How many drinks containi ng alcohol do you have on a typical day when you are drinking? Patient does not drink Q3: How often do you have si x or more drinks on one occasion? 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
--- OUTSIDE RECORDS SUMMARY | 2025-02-05 07:50 | XMS_ITS | Referral Summary ---
Author Organization [facility] Healthcare Address [address] [place] [address] Care Team Providers Care Bi Analyst Name Role Phone Laura Roland Primary Care Provider [phone] Encounters Date Type Department Care Team Description 01/24/2025 2:45 PM CDT - 01/24/2025 11:59 PM CDT Hospital Encounter [facility] MRI [address] [place] [address] Acute lateral meniscus tear of left knee, initial encounter Discharge Disposition: Discharge to home or self care 12/16/2024 3:15 PM DATA CONVERSION DEVELOPER Office Visit [facility] Orthopedics and Sports Medicine [facility] [address] [place] [phone] Elliot Blakely DO Acute lateral meniscus tear of left knee, initial encounter (Primary Dx) 12/03/2024 6:07 AM DATA CONVERSION DEVELOPER - 12/03/2024 11:30 AM DATA CONVERSION DEVELOPER Emergency [place] [address] [place] [address] Rosendo Aguayo MD Acute pain of left knee (Primary Dx) Discharge Disposition: Discharge to home or self care 11/24/[address] [facility] [address] [place] [address] Medical Office Building [address] [place] [address] Sandi Frederick RN Test Results 11/23/2024 5:11 PM DATA CONVERSION DEVELOPER - 11/23/2024 11:59 PM DATA CONVERSION DEVELOPER Hospital Encounter [facility] [place] [address] [place] [address] Cyst of right ovary Discharge Disposition: Discharge to home or self care 11/23/2024 5:11 PM DATA CONVERSION DEVELOPER - 11/23/2024 11:59 PM DATA CONVERSION DEVELOPER Hospital Encounter [facility] MRI [address] [place] [address] Gastric lesion Discharge Disposition: Discharge to home or self care 11/15/[address] [facility] [address] [facility] Medical Office [address] [place] [address] Maritza Schumacher RN from Last 3 Months Allergies Active Allergy Reactions Criticality Noted Date Comments Ibuprofen Other (See comments) Low 08/06/2023 Had gasrtic bypass surgery 05/02/2023 Medications fluticasone (FLONASE) 50 mcg/actuation nasal spray Administer 2 sprays into each nostril daily as needed for rhinitis 8 Active SURE COMFORT PEN NEEDLE 32 gauge x 5/32 needle USE one pen needle ONCE DAILY [...] 2 (two) times a day 60 tablet 3 Active calcium citrate-vitamin D3 250 mg-5 mcg (200 unit) tablet Take 2 tablets by mouth 3 (three) times a day 90 tablet 3 Active montelukast (SINGULAIR) 10 mg tablet [...] days of 10 mg tablet 30 tablet 4 08/11/20 25 Active rizatriptan (MAXALT) 10 mg tabletIndicatio ns:Migraine Take 1 tablet (10 mg total) by mouth as needed for migraine May repeat in 2 hours if unresolved. Do not exceed 30 mg in 24 hours. 9 tablet 4 Active ondansetron (ZOFRAN) 4 mg tablet [...] 10/01/2022 Assessment & Plan (10/02/2022 4:07 AM DATA CONVERSION DEVELOPER): No abnormal findings on physical exam to preclude employment. Morbid obesity with BMI of 40.0-44.9, adult 02/16 Obstructive sleep apnea 03/08/2020 Hyperlipidemia associated with type 2 diabetes m ellitus 03/08/2020 Chest pain 03/08/2020 Dyspnea on exertion 03/08/2020 HLD (hyperlipidemia) 04/01/2019 Epicondylitis, lateral, right 11/24/2018 Overview (11/24/2018): Added automatically from request for surgery [id number] Radial tunnel syndrome 11/24/2018 Overview (11/24/2018): Added automatically from request for surgery [id number] Achilles tendinitis of right lower extremity Hypertension associated with diabetes 04/16/2018 Type 2 diabetes mellitus wit h hyperglycemia, with long-term current use of insulin ([facility]) 04/16/2018 Lateral epicondylitis of right elbow 03/26/2018 Bone spur of foot 03/20/2018 Overview (05/04/2018): Overview: Calcaneal spurs with chronic bursitis Immunizations Immunization Administration Dates Next Due Pneumococcal Polysaccharide PPV23 08/05/2006 Tdap 08/30/2022 Social History Tobacco Use Types Packs/Day Years [...] file Not on file Not on file Last Filed Vital Signs Vital Sign Reading Time Taken Comments Blood Pressure 140/70 12/03/2024 11:09 AM DATA CONVERSION DEVELOPER Pulse 69 12/03/2024 11:09 AM DATA CONVERSION DEVELOPER Temperature 36.1 C (97 F) 12/03/2024 5:43 AM DATA CONVERSION DEVELOPER Respiratory Rate 17 12/03/2024 11:0 9 AM DATA CONVERSION DEVELOPER Oxygen Saturation 100% 12/03/2024 11: 09 AM DATA CONVERSION DEVELOPER Inhaled Oxygen Concentration - - Weight 80.7 kg (177 lb 14.6 oz) 01/24/2025 3:07 PM CDT Height 157.5 cm (5' 2 ) 01/24/2025 3:07 PM CDT Body Mass Index 32.54 01/24/2025 3:07 PM CDT Plan of Treatment Not on file Procedures Procedure Name Priority Date/Time Associated Diagnosis Comments MRI KNEE LEFT WO CONTRAST Schedule Routine, Read Routine (OP Routine) 01/24/2025 3:41 PM CDT Acute lateral meniscus tear of left knee, initial encounter XR KNEE LEFT 1 OR 2 VIEWS ED 12/03/2024 11:07 AM DATA CONVERSION DEVELOPER US VEIN DUPLEX LOWER EXTREMITY LEFT LIMITED ED 12/03/2024 9:25 AM DATA CONVERSION DEVELOPER DIFFERENTIAL AUTO STAT 12/03/2024 7:1 6 AM DATA CONVERSION DEVELOPER D-DIMER, QUANTITATIVE STAT 12/03/2024 7:16 AM DATA CONVERSION DEVELOPER CBC WITH AUTO DIFFERENTIAL STAT 12/03/2024 7:16 AM DATA CONVERSION DEVELOPER EGFR STAT 12/03/2024 6:43 AM DATA CONVERSION DEVELOPER BASIC METABOLIC PANEL STAT 12/03/2024 6:43 AM DATA CONVERSION DEVELOPER MRI ABDOMEN PANCREAS W WO CONTRAST Schedule Routine, Read Routine (OP Routine) 11/23/2024 6:39 PM DATA CONVERSION DEVELOPER Gastric lesion US PELVIS COMPLETE Schedule Routine, Read Routine (OP Routine) 11/23/2024 5:52 PM DATA CONVERSION DEVELOPER Cyst of right ovary SCREENING MAMMOGRAM BILATERAL [...] signed by Vasyl YANCEY T: Report ID: [id number] Reading Location: [id number] Procedure Note Vasyl Ayala MD - 01/24/2025 [...] signed by Vasyl YANCEY T: Report ID: [id number] Reading Location: [id number] us Elliot Blakely DO IMG MRI PROCEDURES Final Resul t * XR Knee Left 1 or 2 Views (12/03/2024 11:07 AM DATA CONVERSION DEVELOPER) Anatomical Region Laterality Modality Lower Extremities, Knee Left Computed Radiography 12/03/2024 11:2 6 AM DATA CONVERSION DEVELOPER Narrative 12/03/2024 11:32 AM DATA CONVERSION DEVELOPER EXAM DESCRIPTION: XR KNEE LEFT 1 OR [...] signed by Ignacio SUBRAMANIAN T: Report ID: [id number] Reading Location: [id number] Procedure Note Ignacio Bone MD - 12/03/2024 [...] signed by Ignacio SUBRAMANIAN T: Report ID: [id number] Reading Location: [id number] Rosendo Aguayo MD [facility] [place] PROCEDURES F inal Result * US VEIN DUPLEX LOWER EXTREMITY LEFT LIMITED, UNILATERAL (12/03/2024 9:25 AM DATA CONVERSION DEVELOPER) Anatomical Region Laterality Modality Vascular Left Ultrasound 12/03/2024 Narrative 12/08/2024 8:27 AM DATA CONVERSION DEVELOPER [employer] Job ID: [id number] M[employer]ot[employer] Document ID: [id number] Dictated date/time: [id number] LEFT LOWER EXTREMITY VENOUS DUPLEX REASON FOR EXAM Deep vein thrombosis. FINDINGS ON THE LEFT The left common femoral, femoral, popliteal, posterior tibial, peroneal, great saphenous demonstrate spontaneous phasic flow; they augment and are compressible. INTERPRETATION No evidence of deep or superficial venous thrombosis in the left lower extremity. Job ID/Internal Job ID: [id number] Rosendo Aguayo MD [facility] [place] PROCEDURES F inal Result * Differential, auto (12/03/2024 7:16 AM DATA CONVERSION DEVELOPER) Neutrophil abs 1.5 1.5 - 6.5 K/cumm Imm gran abs 0.0 0.0 - 0.1 K/cumm [facility] Lymphocyte abs 2.7 0.8 - 3.3 K/cumm [facility] Monocyte abs 0.4 0.2 - 0.8 K/cumm [facility] Eosinophil abs 0.1 0.0 - 0.5 K/cumm [facility] Basophil abs 0.0 0.0 - 0.1 K/cumm [facility] Neutrophil pct 31.1 % [facility] Comment: Interpretive Data Percent cell count reference ranges are not reported, since discordance with absolute values may lead to misinterpretation of CBC data. Current Interpretive Data was last revised on 2018. Imm gran pct 0.0 % [facility] Comment: Interpretive Data Percent cell count reference ranges are not reported, since discordance with absolute values may lead to misinterpretation of CBC data. Current Interpretive Data was last revised on 2018. Lymphocyte pct 57.2 % [facility] Comment: Interpretive Data Percent cell count reference ranges are not reported, since discordance with absolute values may lead to misinterpretation of CBC data. Current Interpretive Data was last revised on 2018. Monocyte pct 8.0 % [facility] Comment: Interpretive Data Percent cell count reference ranges are not reported, since discordance with absolute values may lead to misinterpretation of CBC data. Current Interpretive Data was last revised on 2018. Eosinophil pct 2.8 % [facility] Comment: Interpretive Data Percent cell count reference ranges are not reported, since discordance with absolute values may lead to misinterpretation of CBC data. Current Interpretive Data was last revised on 2018. Basophil pct 0.9 % [facility] Comment: Interpretive Data Percent cell count reference ranges are not reported, since discordance with absolute values may lead to misinterpretation of CBC data. Current Interpretive Data was last revised on 2018. Blood 12/03/2024 7:16 AM DATA CONVERSION DEVELOPER 12/03/2024 7:20 AM DATA CONVERSION DEVELOPER us Rosendo Aguayo MD LAB BLOOD ORDERABLE S Final Result [facility] [address] [facility] Department [place] [address] * (ABNORMAL) CBC with auto differential (12/03/2024 7:16 AM DATA CONVERSION DEVELOPER) WBC 4.7 3.8 - 9.9 K/cumm Hgb 11.6(L) 11.9 - 15.5 g/dL [facility] Hct 34.7(L) 35.6 - 45.5 % [facility] Plt 329 150 - 400 K/cumm [facility] MPV 8.4(L) 9.1 - 12.3 fL [facility] RBC 3.68(L) 3.90 - 5.20 M/cumm [facility] MCV 94.3 81.3 - 96.4 fL [facility] MCH 31.5 27.1 - 33.3 pg [facility] MCHC 33.4 32.3 - 35.7 g/dL [facility] RDW CV 11.5 11.1 - 14.9 % [facility] RDW SD 39.5 35.7 - 48.1 fL [facility] NRBC abs 0.00 0.00 - 0.01 K/cumm [facility] Blood 12/03/2024 7:16 AM DATA CONVERSION DEVELOPER 12/03/2024 7:20 AM DATA CONVERSION DEVELOPER us Rosendo Aguayo MD LAB BLOOD ORDERABLE S Final Result [place] [id number] [facility] Department [place] [address] * D-dimer, quantitative (12/03/2024 7:16 AM DATA CONVERSION DEVELOPER) D-Dimer <270 <=499 ng/mL FEU Comment: Interpretive [...] 68, VTE cut-off 680 ng/ml FEU. References; Evon HT et al. Brit Med J. 2013;346:f2492. Araceli et al. Annals Int Med. 2015;163:701-11. Current interpretive data was last revised on 2019. Blood 12/03/2024 7:16 AM DATA CONVERSION DEVELOPER 12/03/2024 7:20 AM DATA CONVERSION DEVELOPER Rosendo Aguayo MD LAB BLOOD ORDERABLE S Final Result Performing Organization Address City/[facility] Co de Phone Number ANDREW [address] [place] [address] * eGFR (12/03/2024 6:43 AM DATA CONVERSION DEVELOPER) eGFR >90 >=60 mL/min/1. 73 m2 Comment: [...] of Race in Diagnosing Kidney Disease, JASN 202). The CKD-EPI equation should not be used for patients with unstable renal function and has not been validated in children and those over 70. Current interpretive data was last reviewed 2021. Blood 12/03/2024 6:43 AM DATA CONVERSION DEVELOPER 12/03/2024 6:45 AM DATA CONVERSION DEVELOPER Rosendo Aguayo MD LAB BLOOD ORDERABLE S Final Result Performing Organization Address City/[facility]/ZIP Co de Phone Number ANDREW [address] [facility] [place] [address] * (ABNORMAL) Basic metabolic panel (12/03/2024 6:43 AM DATA CONVERSION DEVELOPER) Sodium 136 135 - 145 mmol/L Potassium, pl See Comment 3.3 - 4.9 [facility] Comment:Credited; Hemolyzed Specimen Chloride 103 97 - 110 mmol/L [facility] CO2 27 22 - 32 mmol/L [facility] Anion gap 6 2 - 15 mmol/L [facility] BUN 10 6 - 25 mg/dL [facility] Creatinine 0.42(L) 0.60 - 1.10 mg/dL [facility] Glucose 104 70 - 199 mg/dL [facility] Comment: Interpretive Data Fasting glucose >/= [...] 2022. Calcium 9.0 8.5 - 10.3 mg/dL [facility] Blood 12/03/2024 6:43 AM DATA CONVERSION DEVELOPER 12/03/2024 6:45 AM DATA CONVERSION DEVELOPER us Rosendo Aguayo MD LAB BLOOD ORDERABLE S Final Result [facility] [address] [facility] Department [place] [address] * MRI Abdomen Pancreas W WO Contrast (11/23/2024 6:39 PM DATA CONVERSION DEVELOPER) Anatomical Region Laterality Modality Body N/A Magnetic Resonan ce 11/24/2024 9:38 AM DATA CONVERSION DEVELOPER Narrative 11/24/2024 10:15 AM DATA CONVERSION DEVELOPER EXAM DESCRIPTION: MRI ABDOMEN PANCREAS W WO [...] signed by Vasyl YANCEY T: Report ID: [id number] Reading Location: [id number] Procedure Note Vasyl Ayala MD - 11/24/2024 [...] signed by Vasyl YANCEY T: Report ID: [id number] Reading Location: [id number] Barbi Mendez [facility] STATIC BALANCER IMG MRI PROCEDURES Final Result * US Pelvis Complete (11/23/2024 5:52 PM DATA CONVERSION DEVELOPER) Anatomical Region Laterality Modality Pelvis N/A Ultrasound 11/24/2024 10:1 5 AM DATA CONVERSION DEVELOPER Narrative 11/24/2024 10:16 AM DATA CONVERSION DEVELOPER EXAM DESCRIPTION: US PELVIS COMPLETE REASON FOR [...] signed by Vasyl YANCEY T: Report ID: [id number] Reading Location: [id number] Procedure Note Vasyl Ayala MD - 11/24/2024 [...] signed by Vasyl YANCEY T: Report ID: [id number] Reading Location: [id number] Kodak Haq MD IMG US PROCEDURES Final [...] age 40, based on guidelines of the [employer] (ACR Practice Parameter for the Performance of Screening and Diagnostic Mammography) and [place]. For women [...] breast. There has been no suspicious change. Self Screening Mammogram IMG MAMMO PROCEDURES Fi [...] and children were not included. (Diabetes Care 31:2307-1021, 2008). The eAG is not equivalent to a fasting glucose. Blood 06/16/2024 10:5 8 AM CDT 06/16/2024 11:14 AM CDT Jeffery Abbott NP LAB BLOOD ORDERABLES Final Result [facility] [address] [facility]. Department [place] [address] * (ABNORMAL) Lipid panel (06/16/2024 10:58 AM [...] Pediatrics 2011;128:S213 2. NCEP Expert Panel. Circulation 2003;110:227 Current Interpretive Data was last revised on [...] Pediatrics 2011;128:S213 2. NCEP Expert Panel. Circulation 2003;110:227 Current Interpretive Data was last revised on [...] revised on 2018. Chol/HDL ratio 3 [facility] Blood 06/16/2024 10:5 8 AM CDT 06/16/2024 12:49 PM CDT us Jeffery Abbott NP LAB BLOOD ORDERABLES Final Result [facility]W [facility] [address] [facility]. Department of Laboratories [place], [place] [id number] * ThinPrep Pap with HPV (07/13/2021 11:05 AM CDT) Pap test 07/13/2021 11:0 5 AM CDT 07/16/2021 11:05 AM CDT Narrative 07/20/2021 2:56 PM CDT [facility] Department of Pathology [address] [place], [place] [id number] Final Report with Addendum Note to Patients: [...] the details. Patient Name: AMADA JAY Address: [address] [place] [address] Gender: F : 1975 (Age: 46) Service: Laboratory Location: [facility] #: [id number] Patient Type: Taken: 07/13/2021 Received: 07/16/2021 Accessioned:: 07/18/2021 Reported: 07/20/2021 Physician(s): Kodak Haq M.D. [facility] Diagnosis: Source of Specimen: Imaged Thinprep Pap Test plus HPV - Data Compiler Cytologic Material Specimen Adequacy: - Specimen satisfactory [...] Imaged Thinprep Pap Test plus HPV - Data Compiler Cytologic Material Clinical History: Menstrual History: Ablation [...] determined by the Surgical Pathology Department at [facility] as part of an ongoing quality assurance director program and in compliance with federally mandated [...] characteristics determined by the Surgical Pathology Department [facility]. It has not been cleared or approved by the U. S. Food and Drug Administration. Kodak Haq MD LAB CYTOLOGY ORDERABLES Final Result from Last 3 Months or Most Recently Relevant to Health Maintenance Insurance [facility] * Guarantor: Amada Jay Account Type Relation to Patient Date of Phone Billing Address Workers Comp Employer [employer] Advance Directives For more information, please contact: [phone] * Full Code (Latest Code Status on File) Date Activated Date Inactivated Comments 08/07/2023 8:40 AM 08/07/2023 2:26 PM * Full Code Date Activated Date Inactivated Comments 05/02/2023 11:55 AM 05/03/2023 7:05 PM * Full Code Date Activated Date Inactivated Comments 03/13/2023 8:07 AM 03/13/2023 1:58 PM Care Teams Bi Analyst Relationship Specialty Start Date End Date Laura Roland PA [address] [place] [id number] PCP - General Physician [employer] 09/25/22
[2025-02-05 08:27] LABS: Alanine Aminotransferase 46 U/L (6-35); Albumin Level 4.4 g/dL (3.5-5.1); Alkaline Phosphatase 75 U/L (38-126); Anion Gap 5 mmol/L (4-12); Aspartate Amino Transferase 32 U/L (14-36); Bilirubin,Total 0.9 mg/dL (0.2-1.3); Blood Urea Nitrogen 11 mg/dL (7-17); Calcium 9.6 mg/dL (8.4-10.2); Carbon Dioxide 30 mmol/L (22-30); Chloride 102 mmol/L (98-107); Cholesterol 219 mg/dL (0-200); Estimated Glomerular Filt Rate > 60; Glucose 160 mg/dL (65-110); HDL Direct 94 mg/dL; Potassium 4.3 mmol/L (3.4-5.0); Sodium 137 mmol/L (137-145); Triglycerides 55 mg/dL (<150)
[2025-02-05 08:38] LABS: LDL Cholesterol Direct 85 mg/dL
[2025-02-05 09:53] LABS: Hemoglobin A1C 6.1 % (<5.7)
== END 2025-02-05 07:47 | disposition home or self-care (01) ==
PROVIDERS: PCP Physician Assistant; Visit Provider Internal Medicine Cardiovascular Disease
DX: E78.5 Hyperlipidemia, unspecified (principal); E11.9 Type 2 diabetes mellitus without complications
CPT/HCPCS: 36415; 80053; 80061; 83036; 84443